=== PATIENT | male | born 1940 | race Caucasian/White ===

== ENCOUNTER 2020-01-17 05:45 | Inpatient (IN) | payer MEDICARE, BC ==
--- NOTE | 2020-01-04 15:31 | NUR ---
PT SEEN FOR SURGICAL PREADMISSION FOR LT TOTAL HIP ON 01/17/20. PATIENT LIVES AT HOME WITH IN A SINGLE STORY HOME, NO SATIRS INSIDE, 1 STEP OUTSIDE W/O RAIL. PATIENT STATES WILL PROVIDE ALL TRANSPORTATION NEEDS AND ASSIST AT HOME AFTER DC. PATIENT REPORTS: -NO FWW, INFORMATION GIVEN FOR [facility] MEDICAL LOAN CLOSET, PT TO F/U. -HAS WALKIN SHOWER WITH INNER AND OUTTER HAND RAIL. -HAS SHOWER CHAIR -HAS HAND-HELD SHOWER HEAD -HAS ADA TOILET WITH RAIL PATIENT SEEN AT [facility] OUTPATIENT P/T TODAY FOR PREOP ASSESSMENT AND ALREADY SCHEDULED FOR POSTOP APPOINTMENT. DENIES NEED FOR HOMEHEALTH. PATIENT INSTRUCTED TO BRING IN FWW AND CPAP ON DAY OF SURGERY, VERBALIZED UNDERSTANIG.
[~2020-01-17] VITALS: Ht 175.3 cm; Wt 103.7 kg
--- OUTSIDE RECORDS SUMMARY | ~2020-01-17 | XMS | Clinical Summary ---
Demographics + + + | Address | [address] | | | [place] [address] | + + + | Home Phone | | + + + | Preferred Language | Unknown | + + + | Marital Status | | + + + | Hoahaoism Affiliation | Unknown | + + + | Race | White | + + + | Ethnic Group | Not or | + + + Author + + + | Author | [facility] | | | and [place] | + + + | Organization | [facility] | | | and [place] | + + + | Address | Unknown | + + + | Phone | Unavailable | + + + Support + + +---------+ + | Name | Relationship | Address | Phone | + + +---------+ + | Amber Philipp | ECON | Unknown | | + + +---------+ + Care Team Providers + +------+ + | Care Residential Care Facility Manager Name | Role | Phone | + +------+ + | Willard Goldberg MD | PCP | | + +------+ + Allergies + + + + + + | Active Allergy | Reactions | Severity | Noted | Comments | | | | | Date | | + + + + + + | Sulfa Antibiotics | Itching | | 12/15/19 | | | | | | 20 | | + + + + + + Medications + + + +---------+------+------+-------+ | Medication | Sig | Dispensed | Refills | Star | End | Statu | | | | | | t | Date | s | | | | | | Date | | | + + + +---------+------+------+-------+ | losartan (COZAAR) | Take 100 mg by mouth | | 0 | | | Activ | | 100 MG tablet | Daily. | | | | | e | + + + +---------+------+------+-------+ | atorvaSTATin | Take 10 mg by mouth | | 0 | | | Activ | | (LIPITOR) 10 mg | nightly. | | | | | e | | tablet | | | | | | | + + + +---------+------+------+-------+ | PHENOBARBITAL PO | Take 180 mg by | | 0 | | | Activ | | | mouth. | | | | | e | + + + +---------+------+------+-------+ | cholecalciferol | Take by mouth Daily. | | 0 | | | Activ | | (THERA-D) 100 mcg | | | | | | e | | (4,000 units) tablet | | | | | | | + + + +---------+------+------+-------+ | Naproxen Sodium | Take by mouth 2 | | 0 | | | Activ | | (ALEVE PO) | times daily. | | | | | e | + + + +---------+------+------+-------+ | acetaminophen | Take 500 mg by mouth | | 0 | | | Activ | | (TYLENOL) 500 mg | every 6 hours as | | | | | e | | tablet | needed for Pain. | | | | | | + + + +---------+------+------+-------+ | doxazosin | Take 8 mg by mouth 2 | | 0 | 03/0 | | Activ | | (CARDURA) 8 MG | times daily. | | | 02/12 | | e | | tablet | | | | 20 | | | + + + +---------+------+------+-------+ Active Problems + + + | Problem | Noted Date | + + + | Preop cardiovascular exam | 12/15/2019 | + + + + + | Last Assessment & Plan: RCRI score = 0 which confers a risk | | of major adverse cardiac events perioperatively of 3.9%. The | | patient has unknown functional capacity due to orthopedic | | limitation. His EKG demonstrates first-degree AV block and | | nonspecific interventricular conduction delay that is unchanged | | compared to prior study done in 2014.The patient is therefore at | | acceptable and nonmodifiable risk to proceed with orthopedic | | surgery. No further cardiac testing or treatment is indicated | | for the purpose of perioperative risk assessment or reduction. | + + + + + | Dilated aortic root | 09/19/2015 | + + + + + | Last Assessment & Plan: 09/2014 Echo report - Dilated | | ascending aorta at 3.8 cm (compared to prior study performed | | 02/2012, ectasia has no significant change from 3.9 cm). 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 | + + + + + | PVC (premature ventricular contraction) | 09/14/2013 | + + + + + | Last Assessment & Plan: Asymptomatic. No treatment indicated | | at this time. | + + + + + | Essential hypertension, benign | 02/17/2012 | + + + + + | Last Assessment & Plan: Controlled on medications. | + + + + + | Hypercholesterolemia | 02/03/2007 | + + + + + | Last Assessment & Plan: Stable on a statin. Dose and | | intensity to be guided by 10-year ASCVD risk. | + + +---------+ + | Obesity | 03/11/2001 | +---------+ + Resolved Problems + + + + | Problem | Noted | Resolved | | | Date | Date | + + + + | Left ventricular hypertrophy | 09/19/19 | | | | 16 | 0 | + + + + Encounters +--------+---------+ + + + | Date | Type | Specialty | Care Team | Description | +--------+---------+ + + + | 12/14/ | Office | Cardiology | Teresa, | Preop cardiovascular | | 2019 | Visit | | MD Toña | exam (Primary Dx); | | | | | | PVC (premature | | | | | | ventricular | | | | | | contraction); | | | | | | Essential | | | | | | hypertension, | | | | | | benign; Dilated | | | | | | aortic root (HCC); | | | | | | Hypercholesterolemia | +--------+---------+ + + + from Last 3 Months Family History + + +------+ + | Medical History | Relation | Name | Comments | + + +------+ + | Heart failure | Father | | | + + +------+ + + +------+ + + | Relation | Name | Status | Comments | + +------+ + + | Father | | | | + +------+ + + Social History + +-------+ +--------+------+ | Tobacco Use | Types | Packs/Day | Years | Date | | | | | Used | | + +-------+ +--------+------+ | Former Smoker | | | | | + +-------+ +--------+------+ + +---+---+---+ | Smokeless Tobacco: | | | | | Never Used | | | | + +---+---+---+ + + +---------+ + | Alcohol Use | Drinks/Week | oz/Week | Comments | + + +---------+ + | Yes | | | | + + +---------+ + + + + | Sex Assigned at | Date Recorded | | | | + + + | Not on file | | + + + Last Filed Vital Signs + + + + + | Vital Sign | Reading | Time Taken | Comments | + + + + + | Blood Pressure | 120/80 | 12/15/2019 2:22 PM | | | | | PDT | | + + + + + | Pulse | 70 | 12/15/2019 2:22 PM | | | | | PDT | | + + + + + | Temperature | 36.8 C (98.3 F) | 12/15/2019 2:22 PM | | | | | PDT | | + + + + + | Respiratory Rate | 18 | 12/15/2019 2:22 PM | | | | | PDT | | + + + + + | Oxygen Saturation | 95% | 12/15/2019 2:22 PM | | | | | PDT | | + + + + + | Inhaled Oxygen | - | - | | | Concentration | | | | + + + + + | Weight | 107.5 kg (237 lb) | 12/15/2019 2:22 PM | | | | | PDT | | + + + + + | Height | - | - | | + + + + + | Body Mass Index | - | - | | + + + + + Plan of Treatment + + + + + | Health Maintenance | Due Date | Last | Comments | | | | Done | | + + + + + | Hepatitis C | | | | | Screening | 2 | | | + + + + + | Med Mgmt: Cr | | | | | | 2 | | | + + + + + | Med Mgmt: K | | | | | | 2 | | | + + + + + | Med Mgmt: Vit D | | | | | | 2 | | | + + + + + | Medication | | | | | Management | 2 | | | + + + + + | Vaccine: | | | | | Pneumococcal 65+ (1 | 7 | | | | of 1 - PPSV23) | | | | + + + + + | Vaccine: Zoster (2 | | 07/09/19 | | | of 3) | 1 | 11 | | + + + + + | Adult Annual | | | | | Wellness Visit | 0 | | | + + + + + | Vaccine: Influenza | | 03/03/20 | | | (#1) | 0 | 18, | | | | | 04/30/20 | | | | | 17, | | | | | 03/21/20 | | | | | 16, | | | | | Addition | | | | | al | | | | | history | | | | | exists | | + + + + + | Vaccine: | | 11/04/19 | | | Dtap/Tdap/Td (2 - | 5 | 15 | | | Td) | | | | + + + + + Procedures + +--------+ + + + | Procedure Name | Priori | Date/Time | Associated Diagnosis | Comments | | | ty | | | | + +--------+ + + + | ECG 12 LEAD | Routin | 12/15/2019 | Preop | Results for this | | | e | 2:27 PM | cardiovascular exam | procedure are in the | | | | PDT | | results section. | + +--------+ + + + | ECHO-EXTERNAL SCAN | | 11/04/2019 | | Results for this | | | | 12:00 AM | | procedure are in the | | | | PDT | | results section. | + +--------+ + + + from Last 3 Months Results ECG 12 lead (12/15/2019 2:27 PM PDT) + + + + + + | Component | Value | Ref Range | Performed | Pathologist | | | | | At | Signature | + + + + + + | VENTRICULAR | 68 | BPM | [facility] | | | RATE EKG | | | | | + + + + + + | ATRIAL RATE | 68 | BPM | [facility] | | + + + + + + | P-R | 248 | ms | [facility] | | | INTERVAL | | | | | + + + + + + | QRS | 142 | ms | [facility] | | | DURATION | | | | | + + + + + + | Q-T | 422 | ms | [facility] | | | INTERVAL | | | | | + + + + + + | Q-T | 448 | ms | [facility] | | | INTERVAL | | | | | | (CORRECTED) | | | | | + + + + + + | P WAVE AXIS | 46 | degrees | [facility] | | + + + + + + | QRS AXIS | -7 | degrees | [facility] | | + + + + + + | T AXIS | 80 | degrees | [facility] | | + + + + + + | INTERPRETAT | Sinus rhythm with 1st | | [facility] | | | ION TEXT | degree A-V block with | | | | | | Premature atrial | | | | | | complexes with Aberrant | | | | | | conductionNon-specific | | | | | | intra-ventricular | | | | | | conduction blockAbnormal | | | | | | ECGNo previous ECGs | | | | | | availableConfirmed by | | | | | | MD TERESA, | | | | | | YAA ([id number]) on | | | | | | 12/20/2019 10:44:22 AM | | | | + + + + + + + + | Specimen | + + | | + + + + + | Narrative | Performed At | + + + | | | + + + + +---------+ + + | Performing | Address | City/State/Zipcode | Phone Number | | Organization | | | | + +---------+ + + | [facility] | | | | + +---------+ + + ECHO-EXTERNAL SCAN (11/04/2019 12:00 AM PDT) + + + | Narrative | Performed At | + + + | Ordered by an | | | unspecified provider. | | + + + from Last 3 Months Insurance + +--------+ +--------+ +---------+--------+ | Payer | Benefi | Subscriber | Effect | Phone | Address | Type | | | t Plan | ID | ferny | | | | | | / | | Dates | | | | | | Group | | | | | | + +--------+ +--------+ +---------+--------+ | MEDICARE | MEDICA | [id number] | 05/26/19 | [phone] | | Medica | | | RE | | 11-Pre | 5 | | re | | | PART A | | sent | | | | | | AND B | | | | | | + +--------+ +--------+ +---------+--------+ | BCBS | BCBS | [id number] | 05/26/19 | | | Indemn | | | OOS | 0 | 19-Pre | | | ity | | | MDCR | | sent | | | | | | SUPPL | | | | | | + +--------+ +--------+ +---------+--------+ + +--------+ +--------+ + + | Guarantor Name | Accoun | Relation to | Date | Phone | Billing Address | | | t Type | Patient | of | | | | | | | | | | + +--------+ +--------+ + + | Marcin Segal | Person | Self [birth year] [address] | | | al/Fam | | 1941 | [phone] | [place] | | | [place] | | | [address] ([place]) | [phone] | + +--------+ +--------+ + + Advance Directives + + + + + | Type | Date Recorded | Patient | Explanation | | | | Stonework Tracer | | + + + + + | Power of | | | | | Carpenters | | | | + + + + + | Advance | | | | | Directive | | | | + + + + +"
--- OUTSIDE RECORDS SUMMARY | ~2020-01-17 | XMS | Encounter Summary ---
Demographics + + + | Address | [address] | | | [place] [address] | + + + | Home Phone | | + + + | Preferred Language | Unknown | + + + | Marital Status | | + + + | Sikh Affiliation | Unknown | + + + | Race | White | + + + | Ethnic Group | Not or | + + + Author + + + | Author | [facility] | | | and [place] | + + + | Organization | [facility] | | | and [place] | + + + | Address | Unknown | + + + | Phone | Unavailable | + + + Support + + +---------+ + | Name | Relationship | Address | Phone | + + +---------+ + | [place] | ECON | Unknown | | + + +---------+ + Care Team Providers + +------+ + | Care Methane Gas Collection System Operator Name | Role | Phone | + +------+ + | Willard Goldberg MD | PCP | | + +------+ + Reason for Visit + + + | Reason | Comments | + + + | Establish Care | | + + + Evaluate & Treat (Urgent) +--------+--------+ + + + + | Status | Reason | Specialty | Diagnoses / | Referred By | Referred To | | | | | Procedures | Contact | Contact | +--------+--------+ + + + + | Closed | | Cardiology | Diagnoses | [place], | Cel[place], | | | | | | Willard Woods, | DO Janie | | | | | Atrioventric | MD [address] | [address] | | | | | genia matos, | [address] | [address] | | | | | first degree | [place], | [place], [place] | | | | | Procedures | [place] [address] | [address] Phone: | | | | | Consult | Phone: | [phone] | | | | | | [phone] | Fax: | | | | | | Fax: | [phone] | | | | | | [phone] | | +--------+--------+ + + + + Encounter Details +--------+---------+ + + + | Date | Type | Department | Care Team | Description | +--------+---------+ + + + | 12/14/ | Office | [facility] | Parvataneni, | Preop cardiovascular | | 2020 | Visit | CARDIOLOGY [place] | MD [address] | exam (Primary Dx); | | | | [address] | [address] | PVC (premature | | | | [place], [place] | [place] [address] | ventricular | | | | [phone] | [phone] | contraction); | | | | [phone] | | Essential | | | | | | hypertension, | | | | | | benign; Dilated | | | | | | aortic root (HCC); | | | | | | Hypercholesterolemia | +--------+---------+ + + + Social History + +-------+ +--------+------+ [...] on file | | + + + documented as of this encounter Last Filed Vital Signs + + + [...] | | + + + + + documented in this encounter Progress Notes Toña Acosta MD - 12/15/2019 2:00 PM PDT Date of visit: 12/20/2019 Primary Care Physician: Willard Goldberg MD CHIEF COMPLAINT: Chief Complaint Patient presents with Establish Care HISTORY OF PRESENT ILLNESS: Marcin Segal is 79 y.o. male with past medical history of aortic ectasia, hypertension, hyperlipidemia who presents to establish cardiac care. He was evaluated by educational psychologist in 2014 for preoperative assessment and has not seen anyone since that time. He had an EKG an d echo performed at that time as well. Patient is asymptomatic however has functional limit ation related to his left hip for which he is planning to have surgery. REVIEW OF SYSTEMS: Review of Systems Constitutional: Negative. Respiratory: Negative for cough, shortness of breath and wheezing. Cardiovascular: Negative for chest pain, palpitations, orthopnea, claudication, leg swellin g and PND. Gastrointestinal: Negative for nausea and vomiting. Neurological: Negative for dizziness and headaches. PHYSICAL EXAM: BP 120/80 | Pulse 70 | Temp 36.8 C (98.3 F) | Resp 18 | Wt 107.5 kg (237 lb) | SpO 2 95% Physical Exam Constitutional: Well-developed. Neck: No JVD present. No thyromegaly present. Cardiovascular: Regular rhythm, S1 normal and S2 normal. No murmur heard. Pulses: Carotid pulses are 2+ on the right side, and 2+ on the left side. Radial pulses are 2+ on the right side, and 2+ on the left side. Pulmonary/Chest: Effort normal and breath sounds normal. No wheezes. No rales. Abdominal: Soft. No tenderness. Musculoskeletal: No edema. DATA: Blood tests: No results found for: WBC, RBC, HGB, HCT, PLT No results found for: NA, K, CL, CO2, ANIONGAP, GLUF, BUN, CREATININE, EGFR No results found for: CHOL, TRIG, LDL, LDL, GLUF No results found for: BNP, TSH, CRP No results found for: TOTEPI EKG (12/15/2019): Performed and reviewed today. Normal sinus rhythm. First-degree AV block . Nonspecific intraventricular conduction delay. Compared to prior ECG performed in 2013 t here is no significant change. Last Echo (09/2014): Per prior Report Dilated ascending aorta at 3.8 cm (compared to prior study performed 02/2012, ectasia has n o significant change from 3.9 cm). Mild associated AI. Last stress test: Last cath: Carotid US: AAA screening: Lower extremity US: OTHERS: Plan ASSESSMENT & PLAN: Marcin Segal is a 79 y.o. male with the following problems and associated assessment an d plan Preop cardiovascular exam RCRI score = 0 which confers a risk of major adverse cardiac events perioperatively of 3.9% . The patient has unknown functional capacity due to orthopedic limitation. His EKG demons trates first-degree AV block and nonspecific interventricular conduction delay that is uncha nged compared to prior study done in 2013. The patient is therefore at acceptable and nonmodifiable risk to proceed with orthopedic easton rgery. No further cardiac testing or treatment is indicated for the purpose of perioperativ e risk assessment or reduction. PVC (premature ventricular contraction) Asymptomatic. No treatment indicated at this time. Essential hypertension, benign Controlled on medications. 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 Mild associated AI. May consider repeat imaging as clinically indicated. Hypercholesterolemia Stable on a statin. Dose and intensity to be guided by 10-year ASCVD risk. Return in about 1 year (around 12/14/2020). The following portions of the patient's history were reviewed and updated as appropriate: Allergies, current medications. Family history, past medical history, past social history, past surgical history. Problem list. Thank you for allowing me to participate in the care of this patient. Please, do not hesitate to contact me for any further questions. Toña Acosta MD 12/20/2019 documented in this encounter Miscellaneous Notes Assessment & Plan Note - Toña Acosta MD - 12/15/2019 2:57 PM PDTAssociated Problem (s): HypercholesterolemiaStable on a statin. Dose and intensity to be guided by 10-year ASC VD risk. ssessment & Plan Note - Toña Acosta MD - 12/15/2019 2:56 PM PDTAssociated Problem(s): Dilated aortic root (HCC)09/2014 Echo report - Dilated ascending aorta at 3.8 cm (compared to prior study performed 02/2012, ectasia has no significant change from 3.9 cm). Mild associated AI . May consider repeat imaging as clinically indicated. ssessment & Plan Note - Toña Acosta MD - 12/15/19 2:56 PM PDTAssociated Problem(s): Essential hypertension, benignControlled on medication s. ssessment & Plan Crystal - Toña Acosta MD - 12/15/2019 2:56 PM PDTAssociated Problem(s): PVC (prematur e ventricular contraction)Asymptomatic. No treatment indicated at this time. ssessment & Plan Crystal - Toña Lraes MD - 12/15/2019 2:55 PM PDTAssociated Problem(s): Preop cardiovascular examRCRI score = 0 which confers a risk of major adverse cardiac events perioperatively of 3.9%. The patient has unknown functional capacity due to orthopedic limitation. His EKG demonstrates first-degree AV block and nonspecific interventricular conduction delay that is unchanged c ompared to prior study done in 2014. The patient is therefore at acceptable and nonmodifiable risk to proceed with orthopedic easton rgery. No further cardiac testing or treatment is indicated for the purpose of perioperativ e risk assessment or reduction. documented in this encounter Plan of Treatment Not on filedocumented as of this encounter Procedures + +--------+ + + + | [...] section. | + +--------+ + + + documented in this encounter Results ECG 12 lead (12/15/2019 2:27 PM [...] | | | + +---------+ + + documented in this encounter Visit Diagnoses + + | Diagnosis | + + | Preop cardiovascular exam - Primary Pre-operative cardiovascular examination | + + | PVC (premature ventricular contraction) Other premature beats | + + | Essential hypertension, benign | + + | Dilated aortic root (HCC) Aortic ectasia, unspecified site | + + | Hypercholesterolemia Pure hypercholesterolemia | + + documented in this encounter"
[~2020-01-17 05:45] MED LIST: ASPIRIN EC81 MG PO; COZAAR100 MG PO; DOXAZOSIN MESYLA8 MG PO; FLOMAX0.4 MG PO; FML5 ML OU; KEFLEX500 MG PO; LIPITOR20 MG PO; LOVASTATIN40 MG PO; PHENOBARBITAL60 MG PO; RESTASIS MULTI5.5 ML OU; TURMERIC 500 M1 EACH PO; TYLENOL EXTRA500 MG PO; VITAMIN D350 MC3 PO
--- NOTE | 2020-01-17 10:40 | NUR ---
PT ARRIVED TO FLOOR VIA STRETCHER. 3 PERSON SLIDE TO HOSPITAL BED. PT DENEIS PAIN. CRYOCUFF, TEDHOSE, FOOT PUMPS IN PLACE. WATER AND CRACKERS PROVIDED. PT W/O NAUSEA/VOMITTING. ASSESSMENT COMPLETED AND VITALS DONE. PT WITH LOW HEART RATE IN 40'S. RECIEVED REPORT FROM AMARILYS ROLAND. IN PACU HR AROUND 60-70. AMARILYS TO CONSULT WITH ANASTESIOLOGIST. DRESSING TO LEFT HIP C/D/I, GREEN LIGHT ON PICCO BLINKING. PT PLACED ON CPOX. 2L NC IN PLACE. SATURATIONS AT 94%. NO ORDERS FOR FLUID. PT SALINE LOCKED. LUNCH ORDERED. ORIENTED TO ROOM AND CALL LIGHT. CALL LIGHT IN REACH. 1100- CALL RECEIVED FROM AMARILYS TO START PT ON TELEMETRY ANDS PLACE HOSPITALISH CONSULT. ORDERS PLACED AND DR GARCIA NOTIFIED.
--- NOTE | 2020-01-17 11:20 | NUR ---
01/17/20 1120 Sheets,Nani 0939 PT ARRIVED TO PACU, VSS. PT REACTIVE AND MILLWORK ESTIMATOR PLACED PT OWN EYE DROPS IN PT EYES. PT DENIES PAIN AND NAUSEA AND IS REORIENTED TO PACU. PT ON 6L VIA MASK. 0945 O2 REMOVED. PT ENCOURAGED TO DEEP BREATHE. 0952 NC PLACED ON PT DUE TO O2 SAT 88%, PT SAT INCREASED TO LOW 90S. 1000 X-RAY AT BEDSIDE. 1010 HOB INCREASED TO PT SIPPING WATER PER REQUEST. 1040 PT READY FOR TRANSFER. PT ARRIVED TO MED-SURG FLOOR AND REPORT TO MED-CLINICAL ACCOUNT LIAISON. PT AT BEDSIDE. DECREASED PULSE NOTED AND THIS RN WILL CONSULT MILLWORK ESTIMATOR. MANUAL PULSE NOTED TO BE IRREGULAR. 1110 MED-CLINICAL ACCOUNT LIAISON CALLED AND ORDER GIVEN FOR THREE LEAD AND HOSPITALIST CONSULT DUE TO IRREGULAR PULSE FROM MILLWORK ESTIMATOR.
--- NOTE | 2020-01-17 11:40 | NUR ---
VITALS TAKEN AND ASSESSMENT COMPLETED. NO DRAINAGE TO LEFT HIP. DRESSING STILL C/D/I. CRYOCUFF, TEDHOSE, FEET PUMPS IN PACE. GREEN LIGHT STILL BLINK. TELE IN PLACE, HR 46. DENEIS PAIN. BILAT LE WITH SOME FEELING ABLE TO WIGGLE TOES SLIGHTLY. CAP REFILL 2.
--- NOTE | 2020-01-17 11:48 | NUR ---
SPOKE WITH DR FRIEDMAN REGARDING PASTE UP ARTIST APPRENTICE ORDERING CONSULT AND TELE. HE STATED FINE.
--- NOTE | 2020-01-17 12:40 | NUR ---
VITALS DONE. PT ASTING AT 97% ON 2 L NC. TITRATED TO ROOM AIR. MAINTAINED SATS AT 97%. PT ABLE TO LIFT RIGHT LEG OFF BED, REPORT SOME PAIN IN LEFT HIP. ABLE TO WIGGLE TOES. CRYODUFF, FEET PUMPS, TEDOHOSE IN PLACE. DRESSING STILL C/D/I. BLINKING GREEN.
--- NOTE | 2020-01-17 13:42 | NUR ---
PATIENT RESTING IN BED. IN ROOM. VITAL SIGNS DONE BY RN. I&O DONE. PATIENT DID NOT VOID DURING THIS PERIOD. RN NOTIFIED. CALL LIGHT WITHIN REACH. NO OTHER NEEDS AT THIS TIME
--- NOTE | 2020-01-17 15:13 | NUR ---
PT UP TO WORK WITH PHYSICAL THERAPY. ABLE TO AMBULATE OUT IN HALLS. HR UP T O120. PT REPORTING SOME DIZZINESS. ASSISTED TO TRY AND VOID. PT UNALBE TO VOID. BACK TO BED. TOOK BLOOD PRESSURE AT 90/55. PT LYED DOWN IN BED. AFTER 5 MINUTES HR RATE WAS DOWN TO 80 AND BLOOD PRESSURE RECHECKED AT 100/40. PT WITHOUT DIZZINESS NOW. PT THINKS IT WAS RELATED TO OXYCODONE TAKEN FOR PAIN.
--- NOTE | 2020-01-17 16:30 | NUR ---
Spoke with Marcin for CM assessment. He remains sleepy and conversation wanders. He has obtained DME needed following his LTH. 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 He has a [employer] cooler place and other DME is at home. FWW is in the car. Pt denies needs to go home, plans on OP therapy at the [facility] on dc. Will follow up with this pt tomorrow.
--- NOTE | 2020-01-17 17:33 | NUR ---
PT DISTENDED AND UNABLE TO VOID. BLADDER SCAN REVIEVED 1500 MLS RETAINED IN BLADDER. 16F TAVAREZ PLACED WITH UROJET. PT TOLERATED WELL.
--- NOTE | 2020-01-17 18:30 | NUR ---
PATIENT IN BED WATCHING TV, RN IN ROOM. CRYO FILLED. CALL LIGHT IN REACH. BELEM FURTHER NEEDS AT THIS TIME
--- NOTE | 2020-01-17 19:33 | NUR ---
PT HAD GOOD DAY. MINIMAL PAIN. WELL CONTROLLED WITH TYLENOL AND TORIDOL. PT RETAINED 1500ML OF URINE SO TAVAREZ PLACED. PICCO WITH SMALL AMOUNT OF SEROSANG DRAINAGE. GREEN LIGHT BLINKING. TEDHOSE, FEET PUMP AND CRYOCUFF IN PLACE. TELE [address] HR FROM 41-120. PT WITH HR AT 120 WITH AMBULATION AND LOW BLOOD PRESSURE. RECOVERED AFTER 5MINUTES IN BED. EATING AND DRINKING WELL.
--- NOTE | 2020-01-17 19:45 | NUR ---
PHONE CALL FROM , NOTIFIED OF STAT LAB ORDERS. LAB CALLED, TO COME TO FLOOR TO DRAW pt LABS.
--- NOTE | 2020-01-17 19:49 | NUR ---
BEDSIDE REPORT RECEIVED FROM LUAN BURGOS. pt RESTING IN BED. JOSHUA WITH SMALL AMT SANGUINOUS DRAINAGE, FLASHING GREEN LIGHT. HR 60 ON TELE 3. CRYO CUFF REFILLED WITH ICE AT THIS TIME AND IN PLACE. TAVAREZ DRAINING YELLOW URINE. CALL LIGHT IN REACH.
--- NOTE | 2020-01-17 22:20 | NUR ---
pt ASSESSMENT COMPLETE. JOSHUA FLASHING GREEN LIGHT, DRAINAGE UNCHANGED ON JOSHUA DRESSING AND FOAM DRESSING. SENSATION INTACT BLE. SOME WEAKNESS LLE. ZAHRAA HOSE, CRYO CUFF, VFPs ON. pt DENIES PAIN, DENIES NAUSEA. SCHEDULED MEDICATIONS ADMINISTERED. IV SL WNL. TAVAREZ EMPTIED. CALL LIGHT IN REACH.
--- NOTE | 2020-01-17 23:05 | NUR ---
IN pt ROOM FOR MEDICATION ADMINISTRATION. RT JANNY PHONED AND IN ROOM TO SET UP pt'S HOME CPAP. ICE WATER PROVIDED. TAVAREZ DRAINING. VFPs ON. pt ASSISTED TO REPOSITION WITH 2PA HIGHER IN BED. CALL LIGHT IN REACH.
--- NOTE | 2020-01-18 00:39 | NUR ---
CHECKED ON pt, RESTING IN BED WITH EYES CLOSED. HOME CPAP ON. SPO2 WNL. LIGHTS OFF IN ROOM.
--- NOTE | 2020-01-18 02:30 | NUR ---
pt SLEEPING, AWAKENS TO VOICE. ASSESSMENT COMPLETE. pt DROWSY, CPAP ON. VSS. TAVAREZ EMPTIED. CRYO CUFF REFILLED WITH ICE. VFPs, ZAHRAA BRAONE, CRYO CUFF IN PLACE. CALL LIGHT IN REACH.
--- NOTE | 2020-01-18 05:45 | NUR ---
pt SLEEPING, AWAKENS TO VOICE. SCHEDULED MEDICATIONS ADMINISTERED. pt DENIES PAIN AT THIS TIME. DROWSY, ORIENTED X 4. VSS. CRYO CUFF REFILLED WITH ICE. ICE WATER PROVIDED. DAYSI D/C'D ORDERED. JOSHUA FLASHING GREEN LIGHT. CALL LIGHT IN REACH.
--- NOTE | 2020-01-18 06:39 | NUR ---
pt RESTED WELL WITH HOME CPAP. DAYSI D/C'D THIS AM. TOLERATING REGULAR DIET, NO NAUSEA. NO REPORTED PAIN, SCHEDULED PAIN MEDICATIONS FOR PAIN CONTROL. DRAINAGE ON JOSHUA DRESSING UNCHANGED FROM START OF SHIFT, SMALL AMT SANGUINOUS DRAINAGE NOTED. JOSHUA FLASHING GREEN LIGHT. FOAM DRESSING IN PLACE. VENOUS FOOT PUMPS, ZAHRAA HOSE, CRYO CUFF WITH ICE IN PLACE. ALERT AND ORIENTED X 4.
--- NOTE | 2020-01-18 06:54 | NUR ---
pt AWAKE, ENCOURAGED pt TO GET UP TO CHAIR. pt REQUESTS TEN MORE MINUTES IN BED, THEN HE WILL GET UP TO CHAIR. VFPs REMOVED REQUESTED FOR pt TO DO PT EXERCISES IN BED. ICE WATER REFILLED. CALL LIGHT IN REACH.
--- NOTE | 2020-01-18 07:37 | OR ---
[facility] [address] [place], [place] [address] Signed DATE OF OPERATION: 01/17/2020 SURGEON: Miesha Whitlock MD PREOPERATIVE DIAGNOSIS: Severe degenerative joint disease, left hip. POSTOPERATIVE DIAGNOSIS: Severe degenerative joint disease, left hip. PROCEDURE PERFORMED: Left total hip arthroplasty with Balwinder. SURGEON: Miesha Whitlock MD ASSISTANTS: 1. Lisa Calderón PA-C. Lisa was present and critical for all portions of the case including positioning, retraction, and wound closure. 2. WILLIAM Ruelas. ANESTHESIA: Spinal. BLOOD LOSS: 250 mL. IMPLANTS: Billingsley Accolade II size 7 stem, high offset with a 56 mm cup, -2.5 head. BRIEF HISTORY: Barney is a 79-year-old gentleman with progressive worsening of his arthritis. He had severe stiffness in the hip and pain that limited his life. Risks and benefits of operative treatment were discussed with him and he elected to proceed. DESCRIPTION OF PROCEDURE: Once consent was obtained, he was taken to the operating room. After adequate anesthesia, he was placed in right lateral decubitus position. Axillary roll was placed and the leg was prepped and draped in the standard sterile fashion. The downside pressure points were well padded. The computer ray was then placed into the anterior Electronically Signed By: MIESHA WHITLOCK MD 01/18/20 0737 PATIENT NAME: BARNEY CÁRDENAS OPERATIVE REPORT DATE OF : 42 REPORT #: [id number] PHYSICIAN: MIESHA WHITLOCK MD PCP: SERGIO MCMAHAN MD REPORT IS CONFIDENTIAL AND NOT TO BE RELEASED WITHOUT AUTHORIZATION [facility] [address] [place], [place] [address] Signed pelvic brim using three stab incisions, three fingerbreadths posterior to the ASIS. The attention was then turned to the actual incision. The anterior lateral approach was taken through skin and subcutaneous tissue. IT band was divided longitudinally. The vastus lateralis was then split along the anterior edge of the hand of the femur and taken distally. This was then taken into the gluteus medius and split directly superiorly. The vastus was then elevated as a subperiosteal sleeve around to the lesser trochanter. The extremely thickened capsule was then elevated off the femoral neck. There was extensive osteophytes and significant stiffness. We attempted to dislocate the hip, however, we were unable to do so. We then made an in situ neck cut and removed the femoral head with some difficulty. Once this was accomplished, we revised the femoral neck cut a little bit more distal. The periacetabular osteophytes removed. Periacetabular soft tissue was removed. Prior to dislocating the hip, we did establish to checkpoint the trochanter and registered the femur with the computer. Going back to the acetabulum once we had the soft tissue cleared off, we brought in the Cask robot and reamed the acetabulum. Initially, our plan was 40 of abduction and 20 of anteversion. However, I did not like that position. We changed that to 40 and 15 on examining the hip. The acetabulum was then reamed up to a 56 and impacted with a 56 was extremely good fit. The acetabular liner was then impacted until it was locked. Attention was then turned to the proximal femur, which was cleared of soft tissue into the trochanter. The femur was opened using the jacobie cutter followed by the Gianni awl. We then curetted laterally and began broaching. We broached up to a 7 of our preop templating showed an 8, 7 was quite well fitting, I did not feel like we can get an 8 in. We then left the 7 with a high offset neck and a 0 head and reduced the hip. It was a little bit long with a little bit high offset. We then dislocated the hip and took the trial components off and re-broached back up to a 7 and a -2.5 head. That showed good leg length and offset. The trials were then removed. The final stem was then impacted until it was well seated. The -2.5 head was placed. He had no Shuck and the stability was good. The hip was taken through range of motion of 100 degrees of flexion. He still had some tightness in abduction, some medial capsulotomy was performed. The flexion and extension were good. The wound was then copiously irrigated with antibiotic solution. The capsule was then closed using #1 Ethibond. The IT band was closed using #1 Stratafix, subcutaneous tissue with #0 Stratafix, and skin with ZipLine. The pelvic ray was removed and those wounds were Steri-Stripped. The wound was dressed with a JOSHUA wound VAC dressing. He was awakened and taken to the recovery room in satisfactory condition. All sponge, needle, and instrument counts were correct. Miesha Whitlock MD Electronically Signed By: MIESHA WHITLOCK MD 01/18/20 0737 PATIENT NAME: BARNEY CÁRDENAS OPERATIVE REPORT DATE OF : 42 REPORT #: [id number] PHYSICIAN: MIESHA WHITLOCK MD PCP: SERGIO MCMAHAN MD REPORT IS CONFIDENTIAL AND NOT TO BE RELEASED WITHOUT AUTHORIZATION [facility] [address] [place] [address] Signed BA/MODL /[id number] Copies: ~ Electronically Signed By: MIESHA WHITLOCK MD 01/18/20 0737 PATIENT NAME: BARNEY CÁRDENAS OPERATIVE REPORT DATE OF : 42 REPORT #: [id number] PHYSICIAN: MIESHA WHITLOCK MD PCP: SERGIO MCMAHAN MD REPORT IS CONFIDENTIAL AND NOT TO BE RELEASED WITHOUT AUTHORIZATION
--- NOTE | 2020-01-18 08:00 | NUR ---
PATIENT SITTING UP IN CHAIR. WHITE BOARD UPDATED. PATIENT'S BREAKFAST ORDERED. CALL LIGHT WITHIN REACH. NO OTHER NEEDS AT THIS TIME
--- NOTE | 2020-01-18 08:06 | NUR ---
REPORT RECEIVED. PT ASSISTED TO CHAIR STAND PA WITH FWW. GEO PAIN. DR FRIEDMAN IN TO ROUND ON PT. POC DISCUSSED. SCOPE PATCH PEREZ TAVAREZ REMOVED AT 0600. PT STILL DTV. CALL LIGHT IN REACH. GEO NEEDS.
--- NOTE | 2020-01-18 10:28 | NUR ---
PATIENT SITTING UP IN CHAIR. IN ROOM. VITAL SIGNS AND I&O DONE. LOW DYASTOLIC BLOOD PRESSURE. PATIENT DID NOT VOID DURING THIS PERIOD. PATIENT COMPLAINS ABOUT DIZZINESS. RN NOTIFIED. CALL LIGHT WITHIN REACH. NO OTHER NEEDS AT THIS TIME
[2020-01-18] MEDS ORDERED: THERA TEARS15 ML OU (11:25)
[2020-01-18] MEDS ORDERED: ALEVE220 MG PO (11:27)
--- NOTE | 2020-01-18 11:28 | NUR ---
MED REC COMPLETE
--- NOTE | 2020-01-18 11:29 | NUR ---
PT JUST FINISHED WITH THERAPY. PT STILL WITH NO VOID SINCE TAVAREZ REMOVAL. DR FRIEDMAN UPDATE. PHYSICAL THERPY WOULD LIKE TO WORK MORE WITH PT ON STABILITY AND SAFETY. ORDERS TO REPLACE TAVAREZ IF BLADDER SCAN IS OVER 500ML. CURRENT SCAN REVIELS 240ML IN BLADDER.
--- NOTE | 2020-01-18 12:26 | NUR ---
STEVE WATSON. PT UP IN CHAIR EATING LUNCH. GEO NAIK.
--- NOTE | 2020-01-18 14:16 | NUR ---
PATIENT SITTING UP IN CHAIR. PATIENT GOES TO USE THE BATHROOM. PATIENT BACKS TO CHAIR. VITAL SIGNS AND I&O DONE. PATIENT DID NOT VOID DURING THIS PERIOD. RN NOTIFIED. CALL LIGHT WITHIN REACH. NO OTHER NEEDS AT THIS TIME
--- NOTE | 2020-01-18 14:34 | NUR ---
PT ALERT, ORIENTED AND SITTING IN CHAIR DOING LEG EXERCISES. PT MENTIONED THAT HE NEEDS TO URINATE BEFORE DC. POINT OF CONCERN FOR PT HAD GOOD VISIT, PT IS A PERSON OF STRONG SABIANIST BELIEFS. KNOWS GOD WILL CARE FOR HIM. PT REQUESTED PRAYER. WILL FOLLOW NEEDED
--- NOTE | 2020-01-18 14:42 | NUR ---
PT WORKING WITH PHYSICAL THERAPY.
--- NOTE | 2020-01-18 16:00 | NUR ---
Pt walking in the [place] with PT. He is staying another night as PT did not feel he is ready to dc.
--- NOTE | 2020-01-18 16:28 | NUR ---
TO PATIENT ROOM TO PLACE TAVAREZ. BLADDERSCAN SHOWED A READING OF 480ML. TAVAREZ PLACED FOLLOWING STERILE PROCEDURE. UROJET WITH LIDOCAINE WAS USED. COUDE TAVAREZ WAS USED. PATIENT TOLERATED WELL. PATIENT PERICARE DONE POST TAVAREZ. PATIENT DEINES ANY FURTHER NEEDS AT THIS TIME. PATIENT LYING SEMI-FOWLERS WITH CRYO ON HIP WITH PILLOW CASE BARRIER BETWEEN CRYO AND SKIN. HIP SURGICAL SITE DRESSING IN TACT WITH MINIMAL SEROUS DRAINAGE OBSERVED ON BANDAGE. PATIENT DENIES ANY FURTHER NEEDS AT THIS TIME.
--- NOTE | 2020-01-18 18:47 | NUR ---
DIRECTOR WOMEN REPORTED PATIENT "FEELING FUNNY." ASSESSED PATIENT, PATIENT STATES, "I FEEL KIND OF DIZZY FROM TIME TO TIME." PATIENTS VITALS CHECKED. O2 SAT 97% BUT PULSE FLUCTUATED FROM MID 40'S TO MID 50'S. APICAL PULSE OF 46. PATIENT EDUCATED ON SIGNS OF POOR PERFUSION AND VERBALIZES UNDERSTANDING AND NEED TO USE CALL LIGHT IF HE EXPERIENCES AND SYMPTOMS. PATIENT DENIES ANY FURTHER NEEDS AT THIS TIME. PATIENT LYING SEMI-FOWLERS WITH THREE RAILS UP, BEDSIDE TABLE AND CALL LIGHT WITHIN REACH.
--- NOTE | 2020-01-18 19:43 | NUR ---
REPORT RECEIVED FROM DAY SHIFT RN. PT LYING IN BED, ALERT AND ORIENTED. DENIES PAIN OR NAUSEA. DISCUSSED MEDICATIONS WITH PT HE EXPRESSED CONCERN OVER POST OP HEART RATE. PT DENIES NEEDS FURTHER NEEDS AT THIS TIME. WHITE BOARD UPDATED. CALL LIGHT IN REACH.
--- NOTE | 2020-01-18 20:45 | NUR ---
TELEPHARMACY CALLED TO VERIFY ORDERS FOR SCHEDULED MEDS. PHARMACIST WOULD NOT RECOMMEND GIVING DICLOFENAC AND KETORALAC TOGETHER. DR. FRIEDMAN CALLED TO VERIFY ORDERS HE STATES "THAT'S WHAT I ALWAYS DO, THE PT IS ALLERGIC TO SULFA SO I COULD NOT ORDER CELEBREX".
--- NOTE | 2020-01-18 22:30 | NUR ---
EVENING ASSESSMENT COMPLETE. SCHEDULED MEDS ADMINISTERED PER EMAR. PT DENIES PAIN OR NAUSEA. LEFT HIP DRESSING WITH SMALL AMOUNT OF SEROSANG DRAINAGE. JOSHUA FLASHING GREEN. CMS INTACT. FRESH ICE TO CRYO. SCD'S/TEDS/HP IN PLACE. TAVAREZ PATENT DRAINING CLEAR YELLOW URINE. FRESH ICE WATER PROVIDED. PT DENIES DIZZINESS. NO FURTHER NEEDS. CALL LIGHT IN REACH.
--- NOTE | 2020-01-19 01:02 | NUR ---
PT RESTING IN BED WITH HOME CPAP, NAD.
--- NOTE | 2020-01-19 02:56 | NUR ---
PT RESTING IN BED WITH EYES CLOSED. RR EVEN AND UNLABORED. CPAP IN PLACE. TAVAREZ PATENT DRAINING CLEAR YELLOW URINE.
--- NOTE | 2020-01-19 06:01 | NUR ---
PT ALERT AND ORIENTED. SLEPT WELL WITH HOME CPAP. VERÓNICA REG DIET. NO NAUSEA. PAIN WELL CONTROLLED WITH SCHEDULED MEDS. LEFT HIP DRESSING WITH OLD SEROSANG DRAINAGE. JOSHUA LIGHT FLASHING GREEN. SCD'S/TEDS/HP/CRYO. PT WITH URINARY RETENTION AND HAD TAVAREZ PLACED 01/17. DC'D WNL 01/18 0600. URINE OUTPUT QS. PT DENIES DIZZINESS WITH AMB THIS SHIFT. REPORTS HE'S FEELING "MORE CLEAR" THIS AM. 1PA WITH FWW.
--- NOTE | 2020-01-19 07:30 | NUR ---
REPORT RECEIVED FROM LUAN OSEGUERA. PT RESTING IN BED. DENIES PAIN AND NAUSEA. DRESSING SHOWS NO NEW DRAINAGE, SMALL AMOUNT OF OLD SHADOWING. GREEN LIGHT FLASHING ON JOSHUA CANISTER. CRYO CUFF AND ZAHRAA HOSE IN PLACE. PT ANTICIPATING BREAKFAST. NO ADDITIONAL REQUESTS OR COMPLAINTS. CALL LIGHT WITHIN REACH.
--- NOTE | 2020-01-19 08:01 | NUR ---
MORNING ASSESSMENT AND MEDICATION DUE. PT RESTING IN BED. PT DENIES PAIN AND NAUSEA. PT REPORTS TOP OF THIGH IS "STILL NUMB." 1 PERSON ASSIST, FWW UP TO CHAIR. PT REPORTS "A LITTLE ACHEY AND STIFF" WITH MOVEMENT BUT STATES DISCOMFORT GOES RIGHT BACK TO 0/10 WITH REST. ASSESSMENT DONE. CMS INTACT. DRESSING SHOWS SMALL AMOUNT OF OLD SHADOWING. GREN LIGHT FLASHING ON JOSHUA CANISTER. CRYO CUFF AND ZAHRAA HOSE IN PLACE. LUNG SOUNDS CLEAR. HERAT RATE CONTINUES TO BE IRREGULAR. MEDICATION GIVEN. PT EATING BREAKFAST. NO ADDITIONAL REQUESTS OR COMPLAINTS AT THIS TIME. CALL LIGHT BRYANNA MARVIN.
--- NOTE | 2020-01-19 10:15 | NUR ---
THIS RN TO ROOM TO CHECK ON PT. PT BACK FROM WORKING WITH PHYSICAL THERAPY. PT REPORTS / PAIN. SCHEDULED MEDICATION GIVEN. PT UP TO CHAIR. CRYO CUFF IN PLACE. NO ADDITIONAL REQEUSTS OR COMPLAINTS. PT HAS YET TO VOID. MOLDING SANDER TO BEDSIDE TO ASSIST PT WITH ATTEMPT TO URINATE.
--- NOTE | 2020-01-19 10:53 | NUR ---
Pt. was up sitting in chair. vitals and I&O's taken and charted. Pt. was able to walk to the bathroom and voided 200ml was charted. Chrio cuff was refilled linens were changed.
--- NOTE | 2020-01-19 11:05 | NUR ---
THIS RN TO ROOM TO CHECK ON PTS VOIDING STATUS. 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 PT DENIES PAIN AND NAUSEA AT THIS TIME. PT UPDATED ON PLAN OF CARE. NO ADDITIONAL REQUESTS OR COMPLAINTS. CALL LIGHT BRYANNA MARVIN. AT BEDSIDE.
--- NOTE | 2020-01-19 11:50 | NUR ---
Dr. Whitlock in pt's room. Plans for pt to stay one more night. Pt did not meet PT criteria for dc and has not been able to void. Pt's questions answered by Dr. Whitlock. 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 States pt was unable to void following back surgery also. Will fu with pt tomorrow for possible dc.
--- NOTE | 2020-01-19 12:02 | NUR ---
NOON ASSESSMENT DUE. PT UP TO CHAIR EATING LUNCH. PT REPORTS 0/10 PAIN WHILE RESTING AND 4/10 WHEN DOING PHYSICAL THERAPY. PT REQUESTS PAIN MEDICATION. SEE MAR FOR MEDICATION GIVEN. ASSESSMENT DONE. CMS INTACT. DRESSING SHOWS NOW NEW DRAINAGE. GREEN LIGHT FLASHING ON JOSHUA CANISTER. PT UP TO RESTROOM, VOIDS 375ML. PT UNSTEADY ON FEET AND HESITANT TO AMBULATE. PT BACK TO CHAIR. CRYO CUFF AND ZAHRAA HOSE IN PLACE. PT ANTICIPATING PHYSICAL THERAPY THIS AFTERNOON. NO ADDITIONAL REQUESTS OR COMPLAINTS. CALL JANN MARVIN.
--- NOTE | 2020-01-19 13:12 | NUR ---
PT ALERT, ORIENTED AND SITTING IN CHAIR, LEGS UP. PT STILL HAVING DIFFICULTY URINATING. PT STARTING TO BE ALITTLE STRESSED. GAVE ENCOURAGEMENT, HOPES TO DC LATER TODAY
--- NOTE | 2020-01-19 13:55 | NUR ---
THIS RN TO ROOM TO CHECK ON PT. 1 PERSON ASSIST, FWW UP TO RESTROOM. PT VOIDS 350ML WITHOUT ISSUE. PT RETURNED TO CHAIR. PT REPORTS 3/10 PAIN AND DENIES NEED FOR ADDITIONAL MEDICAITON. SCHEDULED MEDICATION GIVE. NO ADDITIONAL REQUESTS OR COMPLAINTS. CRYO CUFF IN PLACE. GREEN LIGHT FLASHING ON JOSHUA CANISTER. CALL LIGHT WITHIN REACH.
--- NOTE | 2020-01-19 14:16 | NUR ---
pt vitals taken and charted and I&O's charted. pt. up sitting comfortably in his chair.
--- NOTE | 2020-01-19 15:06 | NUR ---
Pt. went in to the bathroom and attempted to void. Nothing. Said he will try again in an hour
--- NOTE | 2020-01-19 15:45 | NUR ---
PT POST OP DAY 2 FOR LEFT TOTAL HIP REPLACEMENT. PT UP WITH 1 PERSON ASSIST IN ROOM, TO CHAIR AND WITH PHYSICAL THERAPY X2 THIS SHIFT. PT REPORTS 0-4/10 PAIN THIS SHIFT, SCHEDULED AND PRN PAIN MEDICATIONS GIVEN. DRESSING SHOWS MINIMAL NEW DRAINAGE AND IS OTHERWISE INTACT. GREEN LIGHT FLASHING ON JOSHUA CANISTER THROUGHOUT SHIFT. CRYO CUFF, ZAHRAA HOSE AND FOOT PUMPS USED. PT TOLERATING PO INTAKE WITH GOOD APPITITE. CMS INTACT. TAVAREZ CATHETER DC'D THIS MORNING BY CONTAINERS SALES REPRESENTATIVE. PT VOIDING QUANTITY SUFFICIENT. PT USES CALL LIGHT APPROPRIATLY.
--- NOTE | 2020-01-19 15:55 | NUR ---
AFTERNOON ASSESSMENT DUE. PT FINISHING UP WITH PHYSICAL THERAPY. PT BACK TO ROOM AND UP TO CHAIR. PT REPORTS 3/10 PAIN WHEN WALKING WITH PHYSICAL THERAPY AND 0/10 PAIN ONCE BACK TO CHAIR. SCHEDULED MEDICATIONS GIVEN. ASSESSMENT DONE. CMS INTACT. JOSHUA DRESSING SHOWS SCANT AMOUNT OF NEW DRAINAGE, DRESSING NOW ~25% COVERED. FOAM DRESSING SHOWS SMALL PINPOINT SHADOWING. GREEN LIGHT FLASHING ON JOSHUA CANISTER. CRYO CUFF IN PLACE. LUNG SOUNDS CLEAR. HEART RATE REGULAR AT THIS TIME, OCCATIONAL PVC'S WHICH PT STATES ARE HIS BASELINE. PT REMAINS UP TO CHAIR. CAREGIVER TRAY ORDERED FOR PTS . NO ADDITIONAL REQUESTS OR COMPLAINTS. CALL LIGHT WITHIN REACH.
--- NOTE | 2020-01-19 16:58 | NUR ---
THIS RN TO ROOM TO CHECK ON PT. PT DENIES PAIN AND NAUSEA. PT UP TO CHAIR. EATING DINNER. NO REQUESTS OR COMPLAINTS. CALL LIGHT WITHIN REACH. CRYO CUFF IN PLACE.
--- NOTE | 2020-01-19 18:03 | NUR ---
PATIENT UP IN CHAIR, FINISHED WITH DINNER. PATIENT HAS HAD GOOD URINE OUTPUT TODAY, BUT NOTHING FOR THE LAST FEW HOURS, DOESN'T FEEL THE URGE RIGHT NOW, WILL CHECK BACK IN 1/2 HOUR. CRYO REFILLED,CALL LIGHT IN REACH
--- NOTE | 2020-01-19 18:35 | NUR ---
THIS RN TO ROOM TO CHECK ON PT. PT DENIES PAIN AND NAUSEA. 1 PERSON ASSIST, FWW UP TO RESTROOM. PT VOIDS IN URINAL. PT CONTINUES TO BE UNSTEADY ON FEET. AND HAS DIFFICULTY RISING FROM CHAIR. 1 PERSON ASSIST TO BED FOR THE NIGHT. CRYO CUFF, HEEL PROTECTORS, ZAHARA HOSE, AND FOOT PUMPS IN PLACE. PTS BELONGINGS WITHIN REACH. NO ADDITIONAL REQUESTS OR COMPLAINTS. CALL LIGHT WITHIN REACH.
--- NOTE | 2020-01-19 19:20 | NUR ---
SHIFT REPORT RECEIVED FROM ANABELLA ROLAND. PT REATING IN BED, WATCHING TV. JOSHUA BLINKING SATHISH. ZAHRAA BARONE, SCDs, HEEL PROTECTORS AND CRYO CUFF ON. PT DENIES PAIN. NO NEEDS AT THIS TIME. CALL LIGHT IN REACH.
--- NOTE | 2020-01-19 20:45 | NUR ---
HELPED PT TO THE BATHROOM AND BACK TO BED WITH HIS FWW. FRESH WATER GIVEN. VITALS AND I&OS DONE AND CHARTED. BEDSIDE TABLE AND CALL LIGHT IN REACH.
--- NOTE | 2020-01-19 21:48 | NUR ---
ASSESSMENT COMPLETED. JOSHUA BLINKING GREEN, DRIED BLOOD TO UPPER DRESSING. SCHEDULED MEDS PROVIDED. PT DENIES PAIN. CMS INTACT X 4 EXTREMITIES. NO SWELLING NOTED. LUNGS CLEAR. BOWEL TONES ACTIVE, ABD SOFT AND NONTENDER. IV WNL, CDI, FLUSHED WELL. SCDs, ZAHRAA HOSE, HEEL PROTECTORS AND CRYO CUFF ON. WATER PROVIDED. NO OTHER NEEDS AT THIS TIME. CALL LIGHT IN REACH.
--- NOTE | 2020-01-19 23:11 | NUR ---
ASSESSMENT COMPLETED. RLE REDNESS, SCABS AND 3+ EDEMA. LLE 2+ EDEMA, REDNESS. NUMBNESS AND TINGLING IN BOTH LOWER EXTREMITIES. LUNGS CLEAR. BOWEL TONES ACTIVE, ABD SOFT AND NONTENDER. GCS 15, A&O X4. CMS INTACT IN BOTH HANDS. PULSES INTACT IN BOTH FEET, MIDDLE DIGIT AMPUTATED ON BOTH FEET. FEET ELEVATED. SCHEDULED MEDS PROVIDED. CBG 109, NO INSULIN COVERAGE REQUIRED. PT ATE 100% OF SANDWICH BOX. NO OTHER NEEDS AT THIS TIME. CALL LIGHT IN REACH.
--- NOTE | 2020-01-20 00:03 | NUR ---
PT RESTING IN BED, EYES CLOSED. RR EVEN, UNLABORED. CALL LIGHT IN REACH.
--- NOTE | 2020-01-20 02:15 | NUR ---
PT RESTING IN BED, EYES CLOSED. RR EVEN, UNLABORED. JOSHUA BLINKING GREEN, CRYO CUFF, HEELS, ZAHRAA HOSE AND SCDs ON. CALL LIGHT IN REACH.
--- NOTE | 2020-01-20 04:16 | NUR ---
PT RESTING IN BED, EYES CLOSED. SCHEDULED IV MED PROVIDED. RR EVEN, UNLABORED. CALL LIGHT IN REACH.
--- NOTE | 2020-01-20 05:45 | NUR ---
ASST I&Os, EMPTIED URINAL, REPLACE CRYO ICE, RN IN FOR ASSESMENT,
--- NOTE | 2020-01-20 06:25 | NUR ---
ASSESSMENT COMPLETED. JOSHUA BLINKING GREEN, CRYO CUFF, ZAHRAA HOSE, HEEL PROTECTORS AND SCDs ON. IV WNL. NO CHANGES TO BANDAGES. CMS INTACT X4 EXTREMITIES. ABD SOFT, NONTENDER, BOWEL TONES ACTIVE. GCS 15, A&O X4. NO OTHER NEEDS AT THIS TIME. CALL LIGHT IN REACH.
--- NOTE | 2020-01-20 07:57 | NUR ---
PT RESTING IN HIS CHAIR WITH HIS LEGS ELEVATED. ZAHRAA HOSE ON, JOSHUA FLASHING GREEN, CRYO CUFF ON AND RUNNING. DRESSING NOTED TO HAVE SOME OLD DRY DRAINAGE AND DRESSING INTACT AND NO NOTED S/S OF INFECTION. PT DENIES ANY PAIN AT THIS TIME. DR FRIEDMAN TO THE ROOM VISITING WITH THE PT. GOOD CIRCULATION NOTED.
[2020-01-20] MEDS ORDERED: ASPIRIN EC325 MG PO (07:59)
[2020-01-20] MEDS ORDERED: TAMSULOSIN HCL0.4 MG PO (07:59)
[2020-01-20] MEDS ORDERED: DICLOFENAC SODI75 MG PO (07:59)
[2020-01-20] MEDS ORDERED: SENNA LAX8.6 MG PO (08:00)
[2020-01-20] MEDS ORDERED: OXYCODONE HCL5 MG PO (08:00)
[2020-01-20] MEDS ORDERED: GABAPENTIN300 MG PO (08:00)
--- NOTE | 2020-01-20 09:03 | NUR ---
pt. was up sitting in his chair. Breakfast tray was removed. Room was picked up and Bed linens were changed. Pt. used a wash cloth to wash his face and hands.
--- NOTE | 2020-01-20 09:38 | NUR ---
Pt working with physical therapy at this time.
--- NOTE | 2020-01-20 10:10 | NUR ---
Pt resting in his chair following having just finished working with physical therapy. He states he continues to be comfortable at this time.
--- NOTE | 2020-01-20 10:26 | NUR ---
Per Feli the physical therapist the pt as been cleared for discharge. I called Dr Whitlock office and left a message for him to notify him of Feli clearing the pt.
--- NOTE | 2020-01-20 11:54 | NUR ---
Pt sitting up in his chair visiting with his spouse and is getting ready for dc.
--- NOTE | 2020-01-20 12:39 | NUR ---
DISCHARGE INSTRUCTIONS GIVEN, QUESTIONS ANSWERED, SALINE LOCK REMOVED INTACT. VITALS ARE STABLE. PATIENT GIVEN WHEELCHAIR RIDE TO FRONT DOOR.
--- NOTE | 2020-01-20 13:42 | NUR ---
PT SITTING DRESSED IN CHAIR WITH CHARLEEN AT , WAITING FOR DC. PT THANKED ME FOR VISITING, GAVE BLESSING. WILL FOLLOW NEEDED
--- NOTE | 2020-01-21 08:39 | DS ---
[facility] [address], [place] [address] Signed ADMISSION DATE: 01/19/2020 DISCHARGE DATE: 01/20/2020 ADMISSION DIAGNOSIS: Degenerative joint disease, left hip. DISCHARGE DIAGNOSIS: Degenerative joint disease, left hip. PROCEDURE PERFORMED DURING THIS HOSPITALIZATION: Left total hip arthroplasty. BRIEF HISTORY: Barney is a 79-year-old gentleman, who was admitted for total hip. He underwent the above-named procedure and tolerated it well. He was initially kept overnight secondary to a history of urinary retention. He did develop urinary retention requiring a catheter. The initial catheter was removed and continued to be unable to void. He was on Flomax from the time of admission. The catheter was replaced overnight again and removed and after that he was able to void copious amounts urine. He was seen by Physical Therapy and was a little bit slow initially to get his balance and gait pattern. By the day of discharge, however, he was able to go up and down the stairs, up and down the hallway with a good safety profile. We did have to discontinue the scopolamine patch secondary to dizziness. His pain medication was quite adequate to control the pain throughout his hospitalization. He will be discharged to home on oxycodone, Flomax, gabapentin, and diclofenac. He will follow up with me in 7 to 10 days. Miesha Whitlock MD BA/NIDIA /[id number] Copies: Electronically Signed By: MIESHA WHITLOCK MD 01/21/20 0839 PATIENT NAME: BARNEY CÁRDENAS DISCHARGE SUMMARY DATE OF : 42 REPORT #: [id number] PHYSICIAN: MIESHA WHITLOCK MD PCP: SERGIO MCMAHAN MD REPORT IS CONFIDENTIAL AND NOT TO BE RELEASED WITHOUT AUTHORIZATION [address] [address] Signed ~ Electronically Signed By: MIESHA WHITLOCK MD 01/21/20 0839 PATIENT NAME: BARNEY CÁRDENAS DISCHARGE SUMMARY DATE OF : 42 REPORT #: [id number] PHYSICIAN: MIESHA WHITLOCK MD PCP: SERGIO MCMAHAN MD REPORT IS CONFIDENTIAL AND NOT TO BE RELEASED WITHOUT AUTHORIZATION
== END 2020-01-20 12:30 | disposition home or self-care (01) | DRG 726 ==
LOC: MS 05:45 → DS 05:45 → MS 10:25 → DS 01-19 10:31 → MS 01-19 10:32
PROVIDERS: ADMIT Specialist
DX: N40.1 Benign prostatic hyperplasia with lower urinary tract symptoms (principal); R33.8 Other retention of urine; I10 Essential (primary) hypertension; G40.909 Epilepsy, unspecified, not intractable, without status epilepticus; E78.5 Hyperlipidemia, unspecified; K59.00 Constipation, unspecified; I49.1 Atrial premature depolarization; Z79.899 Other long term (current) drug therapy; Z88.2 Allergy status to sulfonamides; Z88.8 Allergy status to other drugs, medicaments and biological substances; Z96.642 Presence of left artificial hip joint
CPT/HCPCS: 01214; 36415; 64447; 64450; 72170; 76942; 80048; 83735; 94760; 94762; 97110; 97116; 97161; 97165; 97530; 97535; C1776; J0171; J0690; J1100; J1885; J2001; J2250; J2405; J2704; J2795; J7121

== ENCOUNTER 2020-11-24 06:20 | Day surgery (SDC) | payer MEDICARE, BC ==
[~2020-11-24] VITALS: Ht 175.3 cm; Wt 108.4 kg
[~2020-11-24 06:20] MED LIST changes: +ALEVE220 MG PO; +ASPIRIN EC325 MG PO; +DICLOFENAC SODI75 MG PO; +DOXAZOSIN MESYLA4 MG PO; +DOXYCYCLINE HY100 MG PO; +GABAPENTIN300 MG PO; +JANTOVEN5 MG; +JANTOVEN6 MG PO; +LOSARTAN-HCTZ1 EAC2 PO; +OXYCODONE HCL5 MG PO; +SENNA LAX8.6 MG PO; +TAMSULOSIN HCL0.4 MG PO; +THERA TEARS15 ML OU
--- NOTE | 2020-11-24 08:14 | NUR ---
11/24/20 0814 Yessenia Cantu 0805: PT ARRIVES TO PACU FOR RECOVERY VIA STRETCHER. NON AROUSAL TO VERBAL OR TACTILE STIMULI AT THIS TIME. VSS, RESP EVEN AND UNLABORED ON 10L VIA NON REBREATHER. OPA IN PLACE. O2 SAT >98% 0812: VS REMAINS STABLE. MOVES EXTREMITIES AND GROANS TO TACTILE STIMULI BUT REMAINS UNABLE TO FOLLOW COMMANDS. OPA REMAINS IN PLACE. CONTD 10L VIA NON REABREATHER. O2 SATS MAINTAINED >99%
--- NOTE | 2020-11-30 08:11 | OR ---
[facility] [address] [place], [place] [address] Signed DATE OF OPERATION: 11/24/2020 SURGEON: Suraj Redmond MD PREOPERATIVE DIAGNOSES: 1. Personal history of colonic polyps, age 71 (2012). 2. Diverticulosis. 3. Mom with colon cancer versus pancreatic cancer under the age of 60. 4. Unremarkable colonoscopy in 2016. 5. Anemia with hemoglobin 11.3 and a mean cell volume 69. POSTOPERATIVE DIAGNOSES: 1. Minimal sigmoid diverticulosis. 2. Moderate internal hemorrhoids. 3. Long redundant colon. PROCEDURE: Colonoscopy without biopsy to the distal right colon or proximal transverse colon. ESTIMATED BLOOD LOSS: None. INDICATIONS: Barney is a 80-year-old gentleman with significant past medical history. He was asked to see me for a followup colonoscopy. He had a serrated adenomatous polyp removed in 2012. He is known to have diverticulosis. He thought his mother might have colon cancer, but then he thinks it could be pancreatic cancer. He had a negative colonoscopy in 2016. He has no lower GI complaints. He currently has no lower GI complaints. I gave him a pamphlet in the office on colonoscopy. We discussed the nature of the test. He understands there is risk including, but not limited to gas bloating, crampy abdominal pain, bleeding, perforation requiring surgery, and missed diagnosis. Also because of his significant medical history, he requires monitored anesthesia care with infusion of propofol. He had expressed understanding and wished to proceed. PROCEDURE NOTE: Barney was taken into our endoscopy suite and placed in the left lateral decubitus position. He was given monitored anesthesia care with propofol per our nurse sap treasury consultant. He was given preoperative antibiotics along with subcutaneous heparin. A digital rectal exam was performed and this was unremarkable. He does have mild induration and swelling to the prostate gland. No dominant nodules. The adult Electronically Signed By: SURAJ REDMOND MD 11/30/20 0811 PATIENT NAME: BARNEY CÁRDENAS OPERATIVE REPORT DATE OF : 42 REPORT #: [id number] PHYSICIAN: SURAJ REDMOND MD PCP: WILLARD GOLDBERG MD REPORT IS CONFIDENTIAL AND NOT TO BE RELEASED WITHOUT AUTHORIZATION [facility] [address] [place], [place] [address] Signed colonoscope was introduced and advanced quite easily right up to the handle. He has a large protuberant abdomen. We used abdominal compression and we rotated into the supine position and back in the left lateral decubitus position. Even then, the scope would not advance any further. His prep had been quite excellent. We were probably looking down into the mid right colon. We may have been in the very proximal transverse colon. The scope was then slowly withdrawn. Again, he has a very long redundant colon. He does have some diverticula in the sigmoid colon. They were [id number] in size, a few in number, and scattered about. The rectum was unremarkable. No polyps were visualized. Upon retroflexion of scope, we can see his moderate-sized internal hemorrhoids. After this, the gas was suctioned out and colonoscope removed. Barney tolerated procedure quite well. RECOMMENDATIONS: I will see Barney back in my office in the next few weeks to review the results. He will need a barium enema to evaluate the proximal portion of his colon. Suraj Redmond MD ALB/MODL /[id number] cc: Suraj Redmond MD Chart Filed Incomplete Willard Goldberg MD Copies: SURAJ REDMOND MD CHART FILED INCOMPLETE WILLARD GOLDBERG MD ~ Electronically Signed By: SURAJ REDMOND MD 11/30/20810 PATIENT NAME: MELIABARNEY KIKO OPERATIVE REPORT DATE OF : 42 REPORT #: [id number] PHYSICIAN: SURAJ REDMOND MD PCP: WILLARD GOLDBERG MD REPORT IS CONFIDENTIAL AND NOT TO BE RELEASED WITHOUT AUTHORIZATION
== END 2020-11-24 09:05 | disposition home or self-care (01) ==
LOC: DS 06:20
PROVIDERS: ATTEND Colon & Rectal Surgery
PROC: 0DJD8ZZ Inspection of Lower Intestinal Tract, Via Natural or Artificial Opening Endoscopic (ICD-10-PCS; principal; 2020-11-24 07:00)
DX: K57.30 Diverticulosis of large intestine without perforation or abscess without bleeding (principal); D64.9 Anemia, unspecified; K64.8 Other hemorrhoids; Q43.8 Other specified congenital malformations of intestine; N42.89 Other specified disorders of prostate; G47.33 Obstructive sleep apnea (adult) (pediatric); I10 Essential (primary) hypertension; E78.2 Mixed hyperlipidemia; I48.91 Unspecified atrial fibrillation; R94.31 Abnormal electrocardiogram [ECG] [EKG]; D57.40 Sickle-cell thalassemia without crisis; Z86.010 Personal history of colon polyps; Z96.642 Presence of left artificial hip joint; Z87.891 Personal history of nicotine dependence; Z79.01 Long term (current) use of anticoagulants; Z88.8 Allergy status to other drugs, medicaments and biological substances; Z88.2 Allergy status to sulfonamides; Z86.711 Personal history of pulmonary embolism; Z86.718 Personal history of other venous thrombosis and embolism
CPT/HCPCS: J0690; J1644; J2704; J7121

== ENCOUNTER 2020-12-02 20:08 | Emergency (ER) | payer MEDICARE, BC ==
[~2020-12-02] VITALS: Ht 175.3 cm; Wt 108.0 kg
--- OUTSIDE RECORDS SUMMARY | 2020-12-02 20:10 | XMS ---
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 Linnette has no Care Guidelines for this patient. EAyeshaDAyesha VISIT COUNT (12 MO.) 1 [facility] 1 JO [facility] TOTAL 2 NOTE: Visits indicate total known visits. ED/UCC VISIT TRACKING (12 MO.) 12/02/2020 20:08 [facility] [place] TYPE: Emergency COMPLAINT: - FEVER, SHAKES, L HIP PAIN 02/04/2020 17:25 [facility] [place] TYPE: Emergency DIAGNOSES: - Weakness - Hypoxemia - Other injury of unspecified body region, initial encounter - Local infection of the skin and subcutaneous tissue, unspecified - Chills - Sepsis, unspecified organism - Severe sepsis without septic shock INPATIENT VISIT TRACKING (12 MO.) 02/17/2020 16:47 [facility] [place] TYPE: Physical Therapy DIAGNOSES: - Obesity, unspecified - Paroxysmal atrial fibrillation - Septic pulmonary embolism without acute cor pulmonale - Essential (primary) hypertension - Benign prostatic hyperplasia with lower urinary tract symptoms - Local infection of the skin and subcutaneous tissue, unspecified - Severe sepsis without septic shock - Presence of left artificial hip joint - Infection and inflammatory reaction due to internal left hip prosthesis, sequela - Infection and inflammatory reaction due to internal left hip prosthesis, subsequent encounter - Contusion of left hip, sequela - Other abnormalities of gait and mobility - Other obstructive and reflux uropathy - Other generalized epilepsy and epileptic syndromes, not intractable, without status epilepticus - Acute posthemorrhagic anemia - Thalassemia minor - sepsis - Sepsis, unspecified organism - Other injury of unspecified body region, initial encounter - Pain due to internal orthopedic prosthetic devices, implants and grafts, subsequent encounter - Other pulmonary embolism without acute cor pulmonale - Atrioventricular block, first degree [facility] DIAGNOSES: - Iron deficiency anemia, unspecified - Essential (primary) hypertension - Contusion of left hip, subsequent encounter - Thalassemia minor - Other injury of unspecified body region, initial encounter - Severe sepsis without septic shock - Sepsis, unspecified organism - Hypoxemia - Local infection of the skin and subcutaneous tissue, unspecified - Acute posthemorrhagic anemia - Paroxysmal atrial fibrillation 01/19/2020 10:32 [facility] [place] TYPE: Medical Surgical COMPLAINT: - LEFT TOTAL HIP REPLACEMENT (ASH) DIAGNOSES: - Benign prostatic hyperplasia with lower urinary tract symptoms - Epilepsy, unspecified, not intractable, without status epilepticus - Atrial premature depolarization - Other senior care (current) drug therapy - Allergy status to other drugs, medicaments and biological substances - Benign prostatic hyperplasia with lower urinary tract symptoms - Presence of left artificial hip joint - Constipation, unspecified - Epilepsy, unspecified, not intractable, without status epilepticus - Osteophyte, left hip - Other retention of urine - Allergy status to other drugs, medicaments and biological substances - Essential (primary) hypertension - Other termite control servicer (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
[2020-12-02] MEDS ORDERED: CEFUROXIME500 MG PO (22:59)
[2020-12-02] MEDS ORDERED: DOXYCYCLINE HY100 MG PO (22:59)
== END 2020-12-02 23:25 | disposition home or self-care (01) ==
LOC: ED 20:08
DX: M25.552 Pain in left hip (principal); R50.9 Fever, unspecified; Z20.822 Contact with and (suspected) exposure to COVID-19; R60.9 Edema, unspecified; D64.9 Anemia, unspecified; I10 Essential (primary) hypertension; E78.5 Hyperlipidemia, unspecified; Z87.891 Personal history of nicotine dependence; Z88.2 Allergy status to sulfonamides; Z88.8 Allergy status to other drugs, medicaments and biological substances; Z79.899 Other long term (current) drug therapy; Z79.01 Long term (current) use of anticoagulants
CPT/HCPCS: 71045; 73502; 80053; 81001; 83605; 85025; 85610; 85730; 99284-25; C9803; U0003

== ENCOUNTER 2020-12-03 17:16 | Inpatient (IN) | payer MEDICARE, BC ==
[~2020-12-03] VITALS: Ht 175.3 cm; Wt 111.0 kg
[~2020-12-03 17:16] MED LIST changes: +CEFUROXIME500 MG PO
--- OUTSIDE RECORDS SUMMARY | 2020-12-03 17:18 | XMS ---
PreManage Notification: BARNEY CÁRDENAS Security Vp Platforms Events No recent Security Events currently on file CRITERIA MET - PDMP - History of Sepsis Dx - [facility] - 2 Visits in 30 Days CARE PROVIDERS There are no care providers on record at this time. Linnette has no Care Guidelines for this patient. Liliya VISIT COUNT (12 MO.) 1 [facility] NOTE: Visits indicate total known visits. ED/C VISIT TRACKING (12 MO.) [facility] COMPLAINT: - FEVER, WEAKNESS 12/02/2020 20:08 [facility] TYPE: Emergency COMPLAINT: - FEVER, SHAKES, L HIP PAIN [facility] DIAGNOSES: - Weakness - Hypoxemia - Other injury of unspecified body region, initial encounter - Local infection of the skin and subcutaneous tissue, unspecified - Chills - Sepsis, unspecified organism - Severe sepsis without septic shock INPATIENT VISIT TRACKING (12 MO.) [facility]2020 [facility] DIAGNOSES: - Obesity, [...] - Atrioventricular block, first degree [facility] DIAGNOSES: - Iron [...] epilepticus - Atrial premature depolarization - Other supervisor intermediates (current) drug therapy - Allergy status to [...] substances - Essential (primary) hypertension - Other supervisor intermediates (current) drug therapy - Hyperlipidemia, unspecified - Presence of left artificial hip joint - Benign prostatic hyperplasia with lower urinary tract symptoms - Allergy status to sulfonamides - Unilateral primary osteoarthritis, left hip - Atrial premature depolarization - Other retention of urine - Other acute postprocedural pain - Essential (primary) hypertension - Hyperlipidemia, unspecified - Allergy status to sulfonamides - Constipation, unspecified [email or web address]
--- NOTE | 2020-12-04 11:28 | EKG ---
[facility] [address] [facility] [place], [place] [address] Signed Sinus rhythm with 1st degree AV block Nonspecific intraventricular block Nonspecific T wave abnormality Abnormal ECG No previous ECGs available Confirmed by LOREN HODGES DO ([id number]) on 12/04/2020 11:28:14 AM Electronically Signed By: LOREN HODGES DO 12/04/20 1128 PATIENT NAME: MELIABARNEY KIKO Electrocardiogram DATE OF : 42 PHYSICIAN: LOREN HODGES DO REPORT #: [id number] REPORT IS CONFIDENTIAL AND NOT TO BE RELEASED WITHOUT AUTHORIZATION
[2020-12-05] MEDS ORDERED: WARFARIN SODIUM2 MG PO (08:16)
[2020-12-05] MEDS ORDERED: PERIDEX473 M1 MM (16:43)
[2020-12-05] MEDS ORDERED: REFRESH CELLUV1 EACH OU (16:47)
--- NOTE | 2020-12-06 07:02 | OR ---
[facility] [address], [place] [address] Signed DATE OF OPERATION: 12/04/2020 SURGEON: Miesha Whitlock MD PREOPERATIVE DIAGNOSIS: Infected left THR. POSTOPERATIVE DIAGNOSIS: Infected left THR. PROCEDURE PERFORMED: Incision and drainage with debridement, left total hip. PAYROLL REPRESENTATIVE: Lisa Calderón PA-C. Lisa was present and critical for all portions of procedure. ANESTHESIA: General. BLOOD LOSS: 300 mL. Deep cultures were taken and sent to the lab. BRIEF HISTORY: Barney is a 80-year-old gentleman, who had a total hip arthroplasty by me in December of last year. He subsequently had an infection while I was off and was treated with an irrigation, debridement and poly exchange. He did well postoperatively and went through six weeks of IV antibiotics. Proteus mirabilis and MSSA were grown from the deep cultures. The patient did well and had no problems until about a week ago when he started having pain deep in his hip and posteriorly through to his ischium. He says he felt like he pulled his hamstrings. He subsequently presented to the ER on Friday, did not have a fever, and had no white count. At that time, imaging of the hip showed nothing eventful. He was sent home. He reappeared in the ER yesterday evening with increasing hip pain and fevers as high as 103 during the day. He was admitted to my service overnight and blood cultures were obtained, which showed gram-negative rods this morning. He did continue to have fevers that were managed with Tylenol and a normal white count on his lab work. Because of the increasing pain and positive blood cultures, I elected to take him to the operating room for an immediate irrigation and Electronically Signed By: MIESHA WHITLOCK MD 12/06/20 0702 PATIENT NAME: BARNEY CÁRDENAS OPERATIVE REPORT DATE OF : 42 REPORT #: [id number] PHYSICIAN: MIESHA WHITLOCK MD PCP: SERGIO MCMAHAN MD REPORT IS CONFIDENTIAL AND NOT TO BE RELEASED WITHOUT AUTHORIZATION [facility] [address] [facility] [place] [address] Signed debridement this afternoon with the possibility of a poly exchange and headliner exchange if it was a minimal infection. Risks and benefits of this were discussed with he and his extensively and they understood and wished to proceed. DESCRIPTION OF PROCEDURE: Once consent was obtained, he was taken to the operating room. After adequate anesthesia, he was placed in the right lateral decubitus position. He had an axillary roll placed and downside pressure points were well padded. The left hip was prepped and draped in a standard sterile fashion. There was no erythema about the hip. There was some warmth to it, but he had decent motion. The prior incision was marked out and incised longitudinally. It was extended about an inch inferiorly. This was carried through skin and subcutaneous tissue iliotibial band was pretty much unidentifiable. We did note the start of the bursa, which was bulging through the wound. The incision was carried through this and immediate cloudy fluid was obtained. This was cultured and sent off to the lab as well as to the [facility]. The bursa was fairly substantially filled with probably 60-70 mL of fluid. This was all sharply debrided down to the trochanter. The wound was then inspected and a sinus tract was noted inferiorly up into the anterior inferior aspect of the hip joint. I was able to trace through this with my finger down to the femoral neck of the prosthesis. We then went ahead and continued the modified Hardinge approach and split the abductors and debrided the capsule which was extensively thickened and showed marked fibrosis. The acetabulum was debrided of soft tissue and carried around posteriorly as well as anteriorly. Once we got to the anteroinferior aspect of the acetabulum while debriding the soft tissue, we entered a whole new pocket of about 30 mL that actually was anteroinferior to the acetabular cup and extended inferiorly to the ischium about 3 cm anteriorly and almost 5 cm posteriorly. This was an extensive abscess that I was unable to get to from an anterolateral approach. At that point, I felt that it was going to be critical for him to have the entire prosthesis removed and a two-stage revision performed through probably a posterior approach to allow visualization of this area along the ischium. Since we did not have the equipment or instruments to perform the extraction, I elected to go ahead and irrigate and debride his hip and transfer him to the specialist in [place]. We then continued the debridement as best we could, then irrigated under pulse lavage 3 L normal saline. We then did 1 L of dilute iodine soak for 10 minutes and did another 3 L of pulse lavage irrigation. Once this was accomplished, any devitalized tissue that we could find remaining was removed. The wound was closed in layers. The abductor was closed using #1 PDS. The IT band as best we could identify was closed using #1 PDS and the subcutaneous tissue with 2-0 Monocryl. The skin was closed with agustin. We did place a 10-Bruneian Thanh drain deep in the wound. We also placed a gram of ceftriaxone powder in the inferior abscess itself. Once this was completed, the wound was dressed with a JOSHUA wound VAC dressing and he was awakened and taken to the recovery room in satisfactory condition. All sponge, needle, and instrument counts were correct. He remained hemodynamically stable throughout the Electronically Signed By: MIESHA WHITLOCK MD 12/06/20 0702 PATIENT NAME: BARNEY CÁRDENAS OPERATIVE REPORT DATE OF : 42 REPORT #: [id number] PHYSICIAN: MIESHA WHITLOCK MD PCP: SERGIO MCMAHAN MD REPORT IS CONFIDENTIAL AND NOT TO BE RELEASED WITHOUT AUTHORIZATION [address] [address] Signed procedure. Miesha Whitlock MD BA/NIDIA /[id number] Copies: ~ Electronically Signed By: MIESHA WHITLOCK MD 12/06/20 0702 PATIENT NAME: BARNEY CÁRDENAS OPERATIVE REPORT DATE OF : 42 REPORT #: [id number] PHYSICIAN: MIESHA WHITLOCK MD PCP: SERGIO MCMAHAN MD REPORT IS CONFIDENTIAL AND NOT TO BE RELEASED WITHOUT AUTHORIZATION
== END 2020-12-08 08:45 | disposition short-term general hospital (02) | DRG 481 ==
LOC: ED 17:16 → MS 21:31
PROVIDERS: ADMIT Specialist; ATTEND Specialist
PROC: 5A09357 Assistance with Respiratory Ventilation, Less than 24 Consecutive Hours, Continuous Positive Airway Pressure (ICD-10-PCS; 2020-12-03)
PROC: 0S9B0ZZ Drainage of Left Hip Joint, Open Approach (ICD-10-PCS; principal; 2020-12-04 15:00)
DX: T84.54XA Infection and inflammatory reaction due to internal left knee prosthesis, initial encounter (principal); R78.81 Bacteremia; L02.416 Cutaneous abscess of left lower limb; I10 Essential (primary) hypertension; E78.5 Hyperlipidemia, unspecified; Z86.711 Personal history of pulmonary embolism; G40.909 Epilepsy, unspecified, not intractable, without status epilepticus; N40.0 Benign prostatic hyperplasia without lower urinary tract symptoms; Z88.2 Allergy status to sulfonamides; E78.00 Pure hypercholesterolemia, unspecified; I48.91 Unspecified atrial fibrillation; Z88.8 Allergy status to other drugs, medicaments and biological substances; Z79.899 Other long term (current) drug therapy; Z79.01 Long term (current) use of anticoagulants
CPT/HCPCS: 01210; 36569; 51798; 71045; 74177; 80048; 80053; 80202; 80500; 81001; 83605; 85025; 85610; 85730; 93005; 93010; 96375; 97116; 97162; 99285-25; C1751; C9803; J0696; J0697; J1170; J1650; J1885; J2370; J2704; J3010; J3370; J3480; J7030; J7060; Q9967; U0003

== ENCOUNTER 2022-04-09 07:53 | Emergency (ER) | payer MEDICARE, BC ==
[~2022-04-09] VITALS: Ht 175.3 cm; Wt 110.7 kg
[~2022-04-09 07:53] MED LIST changes: +PERIDEX473 M1 MM; +REFRESH CELLUV1 EACH OU; +WARFARIN SODIUM2 MG PO
--- OUTSIDE RECORDS SUMMARY | 2022-04-09 07:56 | XMS ---
PreManage Notification: BARNEY CÁRDENAS Security Binding Printer Events No recent Security Events currently on file CRITERIA MET - [facility] CARE PROVIDERS SERGIO MCMAHAN Internal Medicine 12/04/2020-Current PHONE: Unknown [place] has no Care Guidelines for this patient. Care History Medical/Surgical 12/04/2020 [facility] - Patient is currently established with [facility]. If patient is seen in the ED during business hours. Please contact CHWs at [facility]. Care Recommendation: If this patient has had 5 or more Emergency Department visits in the last 12 months.\T\nbsp; Patient will require education on the scope and purpose of the ED as an acute care provider not a Primary Care Provider and should not be utilized for chronic conditions.\T\nbsp; These are guidelines and the provider should exercise clinical judgment when providing care. E.D. VISIT COUNT (12 MO.) [address] [place] [address] TOTAL 1 NOTE: Visits indicate total known visits. ED/UCC VISIT TRACKING (12 MO.) 04/09/2022 07:54 [facility] [place] TYPE: Emergency COMPLAINT: - FALL, L ELBOW PAIN/INJURY INPATIENT VISIT TRACKING (12 MO.) No inpatient visits to display in this time frame [email or web address]
[2022-04-09] MEDS ORDERED: GABAPENTIN300 MG PO (08:16)
== END 2022-04-09 09:14 | disposition home or self-care (01) ==
LOC: ED 07:53
DX: S52.122A Displaced fracture of head of left radius, initial encounter for closed fracture (principal); I10 Essential (primary) hypertension; E78.5 Hyperlipidemia, unspecified; G47.30 Sleep apnea, unspecified; Z79.899 Other long term (current) drug therapy; Z88.2 Allergy status to sulfonamides; Z88.8 Allergy status to other drugs, medicaments and biological substances; W19.XXXA Unspecified fall, initial encounter
CPT/HCPCS: 73080; 99283-25

== ENCOUNTER 2023-12-29 05:36 | Inpatient (IN) | payer MEDICARE, BC ==
[~2023-12-29] VITALS: Ht 175.3 cm; Wt 107.8 kg
[2023-12-29] VITALS (7 sets, daily range): BP systolic 112–128; BP diastolic 50–70
[~2023-12-29 05:36] MED LIST changes: +ADRENOID CAPSU1 EACH PO; +ADULT LOW DOSE81 MG PO; +ATORVASTATIN CA10 MG PO; +CEFDINIR300 MG PO; +FINASTERIDE5 MG PO; +FML5 ML OS; -FML5 ML OU; +GABAPENTIN100 MG PO; +HYZAAR 100-251 EACH PO; +JANTOVEN7.5 MG PO; +LEVOFLOXACIN500 MG PO; -LOSARTAN-HCTZ1 EAC2 PO; +MULTI VITAMIN1 EACH PO; +MURO-12815 ML OU; +PATADAY5 ML OU; -RESTASIS MULTI5.5 ML OU; +RESTASIS1 DROP OU; +WARFARIN SODIUM5 MG PO; +[UNRECOGNIZED DRUG - OTHER] OU
[2023-12-29 06:17] LABS: BILIRUBIN, URINE NEGATIVE (negative); BLOOD/HGB, URINE TRACE-I (Negative); KETONE, URINE NEGATIVE (Negative); LEUK ESTERASE, URINE MODERATE (negative); NITRITE, URINE POSITIVE (negative)
[2023-12-29 06:30] LABS: BACTERIA, URINE 2+ /hpf (negative); CASTS, URINE NONE SEEN \\lpf; COLLECTION TYPE, URINE CLEAN CATCH; CRYSTALS, URINE NONE SEEN (0-1+); EPITHELIAL CELLS, URINE 0 /lpf (0-1+); REFLEX CULTURE, URINE Yes (No); WHITE BLOOD CELLS, URINE >50 /HPF (0-5)
[2023-12-29 06:50] LABS: BASOPHILS 0.2 % (0-2); EOSINOPHILS 5.2 % (0-6); HEMATOCRIT 35.9 % (35.0-50.0); HEMOGLOBIN 11.6 g/dL (12.0-18.0); LYMPHOCYTES 4.1 % (24-44); MCH 22.6 (27-36); MCHC 32.2 g/dl (30-36); MCV 70.1 fl (81-99); MONOCYTES 7.7 % (0-12); NEUTROPHILS 82.8 % (39-80); PLATELET COUNT 218 K/uL (140-440); RBC 5.13 M/ul (4.3-5.7); RDW 16.6 (10.5-15.0)
[2023-12-29 07:05] LABS: INFLUENZA B NAA NEGATIVE (NEGATIVE); RESPIRATORY SYNCYTIAL VIR NAA NEGATIVE (NEGATIVE)
[2023-12-29 07:07] LABS: ALBUMIN 3.8 g/dL (3.4-5.0); ALBUMIN/GLOBULIN RATIO 1.31 (1.1-2.4); ANION GAP 12.5 (7-21); BILIRUBIN, TOTAL 1.1 ng/dL (0.2-1.0); BUN/CREATININE RATIO 16.16 (6.0-28.6); CALCIUM 8.9 mg/dL (8.5-10.1); CREATININE, SERUM 0.99 mg/dL (0.70-1.30); POTASSIUM 3.5 mmol/L (3.5-5.1); PROTEIN, TOTAL 6.7 g/dL (6.4-8.2)
[2023-12-29 07:13] LABS: INR 2.54 (0.80-1.30); PROTIME 26.4 Sec (11.2-14.2)
[2023-12-29] MEDS ORDERED: AZITHROMYCIN/DEXTROSE 500 MG/250 ML BAG IV ONE (07:30)
[2023-12-29] MEDS ORDERED: CEFTRIAXONE/SODIUM CHLORIDE 2 GM/100 ML PIGGYBACK IV SCH (09:00)
--- NOTE | 2023-12-29 09:32 | NUR ---
BEDSIDE REPORT RECEIVED FROM LUAN LEVIN. PT ALERT AND AWAKE. CALL LIGHT IN REACH.
--- NOTE | 2023-12-29 09:34 | NUR ---
REPORT GIVEN TO LUAN VASQUEZ
--- NOTE | 2023-12-29 10:24 | NUR ---
UR CLINICAL REVIEW: 2 MN CALI, MEETS OBS MEDICARE OBS 12/29/23 @ 0826 ORDER MATCHES STATUS NO AUTH REQUIRED PER MEDICARE RULES. PLAN TO DC TO HOME WHEN STABLE. 12/30/23
[2023-12-29] MEDS ORDERED: PHARMACY RENAL DOSE ADJUSTMENT 1 DOSE MISC PO SCH (12:00)
--- NOTE | 2023-12-29 13:10 | NUR ---
Spoke with Marcin. He states he lives with his in a one story home. He does not have steps. Pt states concern he has taken multiple antibiotics in the past and feels he is becoming resistant. He states he drives, they have a house keeper that shops, cooks, and cleans. His is a nurse. He asks frequently if there is someone who can tell him what to do about his antibiotic resistance. I encouraged him to speak with the hospitalist or his pcp. He states he has discussed with Dr. Moore, Uro. He is concerned continues to be prescriped antibiotics. We discussed the alternative could have a serious outcome if he did not treat and would get urosepsis. Pt denies need and plans on dc to home when cleared medically. I attempted to call his to check for further needs, no answer, message left.
--- NOTE | 2023-12-29 13:21 | EKG ---
[facility] [address] [facility] [place] [address] Signed Atrial fibrillation Right bundle branch block T wave abnormality, consider lateral ischemia Abnormal ECG When compared with ECG of 09-SEP-2022 06:06, No significant change was found Confirmed by PRO DAVIDSON MD ([id number]) on 12/29/2023 1:21:34 PM Electronically Signed By: PRO DAVIDSON 12/29/23 1321 PATIENT NAME: FARIHABARNEY ARELLANO KIKO Electrocardiogram DATE OF : 42 PHYSICIAN: PRO DAVIDSON REPORT #: [id number] REPORT IS CONFIDENTIAL AND NOT TO BE RELEASED WITHOUT AUTHORIZATION
--- NOTE | 2023-12-29 13:26 | NUR ---
VISITED DURING SPIRITUAL CARE ROUNDS. PT RECEIVING NURSING CARE. DID NOT INTERRUPT. PROVIDED PRAYER.
[2023-12-29] MEDS ORDERED: FLUOROMETHOLONE5 ML OU (14:06)
--- NOTE | 2023-12-29 14:28 | NUR ---
medications reconciled using pharmacy records and patient interview
--- NOTE | 2023-12-29 15:18 | NUR ---
PT RESTS IN BED WITH EYES CLOSED, RESP EVEN AND UNLABORED.
[2023-12-29] MEDS ORDERED: WARFARIN PER PHARMACY PROTOCOL PO SCH ×2 (16:00)
[2023-12-29] MEDS ORDERED: WARFARIN SOD 5 MG TAB PO SCH (16:00)
--- NOTE | 2023-12-29 16:05 | NUR ---
PATIENT GIVEN 5MG OF PO COUMADIN.
--- NOTE | 2023-12-29 17:20 | NUR ---
PT SITS UP IN RECLINER, EATS DINNER, WISHES TO REMOVE O2 NC, ROOM AIR TRIAL STARTED. CALL LIGHT IN REACH. IS PROVIDED, EDUCATION ON USE OF IS PROVIDED, PT VERBALIZES UNDERSTANDING.
--- NOTE | 2023-12-29 17:54 | NUR ---
PT EATS 100% OF DINNER. USES IS CORRECTLY. O2 SATS 95% WITH USE OF IS, PT DROPS TO 89% WITHOUT DEEP BREATHS. 2L O2 NC APPLIED, PT MAINTAINS O2 SATS AT 94%.
--- NOTE | 2023-12-29 18:12 | NUR ---
PT ON CONTINUOUS PULSE OXIMETER. SPOUSE BRINGS IN CPAP MACHINE AT BEDSIDE.
--- NOTE | 2023-12-29 19:20 | NUR ---
Pt stated pt had a reaction to Rocephin in the past. Pt received Rocephin this am at 0900. Pt redness and warmth noted from below nipple area around back, stomach and down to upper thighs and tyler, slight erythema present arms, pt itching. no SOB noted. Dr Olmedo notified via phone, new orders for Benadryl 25mg po obtained.
[2023-12-29] MEDS ORDERED: diphenhydrAMINE HCL 25 MG CAP PO ONE (19:30)
--- NOTE | 2023-12-29 19:34 | NUR ---
voided using self cath, not measured 'had a good stream as per '. Pt back to bed, erythema still present, Pt helped with repositioning. O2 2LNC, cpox on at bedside. benadryl given as per orders.
--- NOTE | 2023-12-29 20:45 | NUR ---
pt tried to get out of bed, bed alrm going off. Pt on 2LNC, lungs clear dim at baes, no cough noted at this time, abd large soft, SL LH patent. edema to ankles and feet, feet elevated. Pt self caths and self cathed earlier when was here. Pt back to bed.. home eye drops applied by pt. no further c/o itching, decreaed redness of body noted. home CPAP at bedside, O2 2L chronic, bed alrm on per nursing judgement
[2023-12-29] MEDS ORDERED: ACETAMINOPHEN 500 MG TAB PO PRN (21:15)
[2023-12-30] VITALS (10 sets, daily range): BP systolic 103–128; BP diastolic 51–79
--- NOTE | 2023-12-30 00:30 | NUR ---
CPOX ALARMING, pt DISCONNECTED CORD. SPO2 WNL WITH 2L OXYGEN BY NC IN PLACE. pt CONFUSED UPON AWAKENING, REORIENTS EASILY TO PLACE. 1PA TO STAND WITH FWW, 2 STAFF IN ROOM ASSISTING pt TO STAND AT SIDE OF BED FOR STRAIGHT CATH. STRAIGHT CATH IN URINAL. BACK IN BED. VS COMPLETE. FEBRILE, PRIMARY RN NOTIFIED AND IN ROOM. pt NOW USING IS.
--- NOTE | 2023-12-30 00:35 | NUR ---
temp 101 oral, tylenol 500mg po give, working w his IS. cooperative with vitals and assessment
--- NOTE | 2023-12-30 00:55 | NUR ---
pt SITTING UP IN BED, TEMPERATURE REASSESSED, 98.3 ORAL AFTER IS USE. HOME CPAP APPLIED. SPO2 92% WHILE AWAKE. BED ALARM ON.
--- NOTE | 2023-12-30 01:03 | NUR ---
pt has a temp of 101 earlier, was medicated with Tylenol 500mg po, effective, temp went down to 98.3 orally. Pt awas on CPAP. desatted to 84% when in a deep sleep. RT notified. O2 2LNC bleeding into CPAP. sats 92%. all procedures explained to pt, cooperative.
--- NOTE | 2023-12-30 03:22 | NUR ---
EYES CLOSED, RESTING, USING CPAP WITH BLEEDING O2, SATS 95%, PULSE 60'S NO RESP DISTRESS, TURNS AND REPOSITIONS SELF IN BED, LE ELEVATED
--- NOTE | 2023-12-30 05:06 | NUR ---
Pt resting, eyes closed, turns and repositions self in bed. using CPAP w 6L bleeding in O2. Bedside CPOX in place, sats 93% pulse 60, rest 15. no s/sx distress. Has slept most of this shift.
--- NOTE | 2023-12-30 05:26 | NUR ---
awake, cooperative with lab draws. was using cpap with 6L inbleeding O2. back to 2L NC, lungs clear dim at baes. using IS at bedside, CPOX on at bedside. sats 90% on 2L. Pt c/o hips pain, medicated with Tylenol 500mg po, tolerating sips of fluids, helped with repositioning, denies need to void. Pt self caths. supplies in closet. Pt aware, no further requests
[2023-12-30 05:27] LABS: EOSINOPHILS 8.7 % (0-6); HEMATOCRIT 36.1 % (35.0-50.0); HEMOGLOBIN 11.6 g/dL (12.0-18.0); LYMPHOCYTES 6.6 % (24-44); MCH 22.7 (27-36); MCHC 32.3 g/dl (30-36); MCV 70.3 fl (81-99); MONOCYTES 6.9 % (0-12); NEUTROPHILS 77.8 % (39-80); PLATELET COUNT 196 K/uL (140-440); RBC 5.13 M/ul (4.3-5.7); RDW 16.7 (10.5-15.0)
[2023-12-30 05:41] LABS: ALBUMIN 3.3 g/dL (3.4-5.0); ALBUMIN/GLOBULIN RATIO 1.18 (1.1-2.4); ANION GAP 8.4 (7-21); BILIRUBIN, TOTAL 0.9 ng/dL (0.2-1.0); BUN/CREATININE RATIO 14.67 (6.0-28.6); CALCIUM 8.3 mg/dL (8.5-10.1); CREATININE, SERUM 1.09 mg/dL (0.70-1.30); MAGNESIUM 2.1 mg/dL (1.8-2.4); POTASSIUM 3.4 mmol/L (3.5-5.1); PROTEIN, TOTAL 6.1 g/dL (6.4-8.2)
[2023-12-30 05:53] LABS: INR 2.11 (0.80-1.30); PROTIME 22.8 Sec (11.2-14.2)
--- NOTE | 2023-12-30 06:06 | NUR ---
Pt was on 2L NC, sleeping, desatted to 86% on 2L whith O2 while sleeping. When awake his sats are between 90-93%. hob elevated, placed back on CPCP with inbleeding of 6LO2, sats up to 91-95%. asked about, denies need to void at this time, pt self caths. "I do not need to cath yet" stated
[2023-12-30] MEDS ORDERED: OPTH OU SCH (09:00)
[2023-12-30] MEDS ORDERED: CEFTRIAXONE/SODIUM CHLORIDE 1 GM/100 ML PIGGYBACK IV SCH (09:00)
[2023-12-30] MEDS ORDERED: PATIENT'S OWN MEDICATION(S) ORDER OU SCH (09:00)
[2023-12-30] MEDS ORDERED: AZITHROMYCIN 500 MG in DEXTROSE 5% 250 ML IV SCH (09:00)
[2023-12-30] MEDS ORDERED: FLUOROMETHOLONE 0.1% OU SCH (09:00)
[2023-12-30] MEDS ORDERED: POVIDONE OU SCH (09:00)
[2023-12-30] MEDS ORDERED: POTASSIUM CHLORIDE 10 MEQ TABCR PO ONE (09:15)
--- NOTE | 2023-12-30 09:31 | NUR ---
PATIENT GIVEN RESTASIS EYE DROPS. 40 MEQ OF PO POTASSIUM GIVEN. LAB IN TO DRAW BLOOD CULTURES. SPOUSE WANTS TO WAIT ON IV ABX UNTIL THEY TALK TO THE DOCTOR.
--- NOTE | 2023-12-30 10:28 | NUR ---
VISITED DURING SPIRITUAL CARE ROUNDS. PT SUPPORTED BY IN ROOM; STRONG RELATIONAL AND ALEXANDREA RESOURCES EXHIBITED. PERSONNEL CLERKS SUPERVISOR PROVIDED SUPPORTIVE PRESENCE, HOSPITALITY, PRAYER. PT AND EXPRESSED GRATITUDE.
--- NOTE | 2023-12-30 10:30 | NUR ---
Admin tylenol 500mg po for reports of 5/10 generalized pain.
--- NOTE | 2023-12-30 10:46 | NUR ---
UR CLINICAL REVIEW: 2 MN FOR VERSALUS-MEETS INPT CRITERIA MEDICARE OBS TO INPT 12/30/23 @ 0850 WILL UPDATE REG NO AUTH REQUIRED PER MEDICARE GUIDELINE ANTICIPATE DISCHARGE IN 24 HOURS
--- NOTE | 2023-12-30 10:53 | NUR ---
ASKED PATIENT THIS MORNING IF HE WOULD LIKE TO EAT BREAKFAST IN HIS CHAIR AND HE SAID NO HE WANTED TO HAVE BREAKFAST IN BED. SET PATIENT UP THIS MORNING TO BRUSH HIS TEETH AND WASH HIS FACE. IN ROOM.
[2023-12-30] MEDS ORDERED: levoFLOXacin 750 MG/150 ML BAG IV SCH (10:54)
--- NOTE | 2023-12-30 11:45 | NUR ---
No plan for dc today per Dr. Olmedo. has been in and out. Lengthy conversation with Amber last evening.
--- NOTE | 2023-12-30 15:02 | NUR ---
BROUGHT PATIENT TWO FRESH GLASSES OF ICE WATER.
--- NOTE | 2023-12-30 15:08 | NUR ---
Patient awake, alert and oriented x4, no acute distress. Patient is on 2L oxygen per nc, respirations even and non labored. Patient has good po intake, q/s urine output. Patient denies needs at this time.
[2023-12-30] MEDS ORDERED: WARFARIN SOD 7.5 MG TAB PO SCH (16:00)
--- NOTE | 2023-12-30 16:08 | NUR ---
Patient requesting his eye drops to be left on bedside table. He declined to allow me to secure in lock box.
--- NOTE | 2023-12-30 17:02 | NUR ---
Tylenol 500mg po admin for reports of 5/10 joint pain.
--- NOTE | 2023-12-30 17:19 | NUR ---
Patient requesting his home dose of phenobarbital. Called Dr. Herndon, new order obtained to start phenobarbital per homes dose/schedule. Order placed for phenobarbital 180mg po at hs.
--- NOTE | 2023-12-30 19:20 | NUR ---
REPORT RECEIVED FROM DAY RN. PATIENT RESTING IN BED. OXYGEN IN PLACE ON AT 2L/MIN VIA NC. DENIES ANY NEEDS AT THIS TIME. CALL LIGHT WITHIN REACH.
--- NOTE | 2023-12-30 20:26 | NUR ---
PATIENT RESTING IN BED. GIVEN HS MEDICATIONS. VSS. DENIES ANY PAIN OR DISCOMFORT AT THIS TIME. DENIES ANY NEED TO VOID AT THIS TIME. LUNGS CTA, BOWEL TONES ACTIVE X 4. HEART RATE IRREGULAR. NO FURTHER NEEDS AT THIS TIME. CALL LIGHT WITHIN REACH, BED ALARM ON.
--- NOTE | 2023-12-30 20:55 | NUR ---
PATIENT CALLED. PATIENT GOT UP TO THE BATHROOM TO DO SELF CATH. PATIENT STATED THAT HE WILL PULL THE CALL BUTTON IF HE NEEDS HELP. 650ML YELLOW URINE OUT. PATIENT IS BACK IN BED. NO FURTHER NEEDS AT THIS TIME. BED ALARM ON FOR SAFETY. SIDE TABLE X2 AND CALL LIGHT WITHIN REACH.
--- NOTE | 2023-12-30 22:36 | NUR ---
PATIENT RESTING IN BED WITH CPAP IN PLACE. 6L OXYGEN PIPED INTO CPAP MASK. CPOX READINGS WNL. PATIENT AWAKE WATCHING TV. DENIES ANY NEEDS AT THIS TIME. CALL LIGHT WITHIN REACH.
--- NOTE | 2023-12-31 00:16 | NUR ---
PATIENT RESTING IN BED WITH EYES CLOSED. RESPIRATIONS EVEN AND UNLABORED. CPAP ON AND FUNCTIONING WNL, CPOX READINGS WNL. CALL LIGHT WITHIN REACH.
--- NOTE | 2023-12-31 01:04 | NUR ---
PATIENT OOB AMBULATED TO BATHROOM WITH 1 PA ASSIST. VOIDING QUANITY SUFFICIENT. STEADY ON FEET. BACK IN BED. NO FURTHER NEEDS AT THIS TIME. CALL LIGHT WITHIN REACH.
--- NOTE | 2023-12-31 03:01 | NUR ---
PATIENT RESTING IN BED. CPAP IN PLACE. CPOX READINGS WNL. RESPIRATIONS EVEN AND UNLABORED. CALL LIGHT WITHIN REACH, BED ALARM ON.
--- NOTE | 2023-12-31 03:38 | NUR ---
NOTIFIED OF BLOOD CULTURE PRELIMINARY RESULTS. TELEPHONE ORDERS RECEIVED AND VERIFIED VIA VERBAL READ BACK FOR REPEAT BLOOD CULTURE LABS.
[2023-12-31 04:12] VITALS: BP 117/75
[2023-12-31 04:13] VITALS: BP 117/75
--- NOTE | 2023-12-31 04:22 | NUR ---
CALL LIGHT ANSWERED. PATIENT AMBULATED TO BATHROOM WITH 1 PA ASSIST AND FWW. TOLLERATED WELL. PATIENT USED URINAL TO VOID 300MLS OF YELLOW URINE. VSS. LUNGS CLEAR IN UPPER LOBES AND DIMINISHED IN LOWER LOBES. C/O GENERALIZED ACHES, PRN GIVEN SEE MAR. CPAP IN PLACE, CPOX READINGS WNL. NO FURHTER NEEDS AT THIS TIME. CALL LIGHT WITHIN REACH, BED ALARM ON.
[2023-12-31 06:02] LABS: INR 1.92 (0.80-1.30); PROTIME 21.1 Sec (11.2-14.2)
--- NOTE | 2023-12-31 06:30 | NUR ---
PATIENT RESTING IN BED, IV ABX RUNNING WITH NO ISSUES OR CONCERNS. Ptient denies any nausea, abd pain/discomfort. Reports passing gas. PROVIDER IN ROOM WITH PATIENT AT THIS TIME. TURNER LIGHT WITHIN REACH.
--- NOTE | 2023-12-31 06:39 | NUR ---
PATIENT RESTING IN BED WITH EYES CLOSED. RESPIRATIONS EVEN AND UNLABORED. PATIENT LUNGS CTA THIS AM, DENIES ANY SOB. DENIES ANY PAIN THIS AM. PATIENT WITH CPAP IN PLACE AND CPOX READINGS WNL. CALL LIGHT WITHIN REACH.
--- NOTE | 2023-12-31 07:00 | NUR ---
SBA. PATIENT UP TO THE BATHROOM AND USED THE URINAL. VOIDED 150ML DARK URINE. PATIENT IS BACK IN BED. NO OTHER NEEDS AT THIS TIME. BED ALARM ON.
--- NOTE | 2023-12-31 09:06 | NUR ---
Patient is awake, alert and oriented x4, no distress. Patient placed on room air, respirations even and non labored, sp02 91%. Patient denies shortness of breath. Patient able to demonstrate proper ISS use at this time, enc use 10x per hr-pt reports his understanding.
[2023-12-31] MEDS ORDERED: LEVOFLOXAC750 MG/150 IV (10:29)
[2023-12-31] MEDS ORDERED: LEVOFLOXACIN750 MG PO (10:30)
--- NOTE | 2023-12-31 10:30 | NUR ---
AFTER I GOT PATIENT'S VITALS DONE I HANDED PATIENT HIS IS MACHINE HE DID IT TEN TIMES. GOT HIM FRESH ICE WATER. PATIENT LAYING IN BED WATCHING TV AND VISITING HIS IN ROOM.
--- NOTE | 2023-12-31 10:32 | NUR ---
VISITED DURING SPIRITUAL CARE ROUNDS. PT WORKING WITH RESPIRATORY THERAPY AMBULATING IN HALLWAY. DID NOT INTERRUPT. PROVIDED PRAYER.
[2023-12-31 10:35] VITALS: BP 128/66
--- NOTE | 2023-12-31 11:19 | NUR ---
GOT PATIENT UP TO HIS CHAIR FOR BREAKFAST. GOT HIM FRESH ICE WATER. CHANGED HIS BED LINENS. ASKED HIM IS THERE ANYTHING ELSE I COULD HELP WITH AND HE SAID NO.
== END 2023-12-31 11:32 | disposition home or self-care (01) | DRG 193 ==
LOC: ED 05:36 → MS 05:38
PROVIDERS: Family Medicine; ADMIT Internal Medicine; ATTEND Internal Medicine
DX: J18.9 Pneumonia, unspecified organism (principal); J96.01 Acute respiratory failure with hypoxia; N39.0 Urinary tract infection, site not specified; R21 Rash and other nonspecific skin eruption; D64.9 Anemia, unspecified; I10 Essential (primary) hypertension; I48.91 Unspecified atrial fibrillation; G47.30 Sleep apnea, unspecified; N40.0 Benign prostatic hyperplasia without lower urinary tract symptoms; E78.00 Pure hypercholesterolemia, unspecified; Z98.890 Other specified postprocedural states; Z88.2 Allergy status to sulfonamides; Z88.8 Allergy status to other drugs, medicaments and biological substances; Z86.711 Personal history of pulmonary embolism; Z79.899 Other long term (current) drug therapy; Z79.01 Long term (current) use of anticoagulants
CPT/HCPCS: 36415; 51701; 70450; 71045; 80053; 81001; 83605; 83735; 85025; 85610; 87040; 87077; 87088; 87186; 87502; 93005; 93010; 94760; 94761; 94762; 96374; 96375; 97110; 97161; 97165; 97530; 97535; 99285-25; A9270; G0378; J0456; J0696; J1956; J7060; U0002

== ENCOUNTER 2024-12-10 22:03 | Emergency (ER) | payer MEDICARE, BC ==
[~2024-12-10] VITALS: Ht 175.3 cm; Wt 110.5 kg
[~2024-12-10 22:03] MED LIST changes: +FLUOROMETHOLONE5 ML OU; +LEVOFLOXAC750 MG/150 IV; +LEVOFLOXACIN750 MG PO; +LOSARTAN-HCTZ1 EACH PO; +PREDNISOLONE ACE5 ML OS; +RESTASIS1 DROP OD; +VITAMIN B121000 MCG PO
[2024-12-10 22:59] VITALS: BP 158/70
== END 2024-12-10 23:00 | disposition home or self-care (01) ==
LOC: ED 22:03
DX: H11.32 Conjunctival hemorrhage, left eye (principal); I10 Essential (primary) hypertension; E78.5 Hyperlipidemia, unspecified; G47.33 Obstructive sleep apnea (adult) (pediatric); I48.91 Unspecified atrial fibrillation; Z88.2 Allergy status to sulfonamides; Z88.1 Allergy status to other antibiotic agents; Z79.01 Long term (current) use of anticoagulants; Z79.899 Other long term (current) drug therapy
CPT/HCPCS: 99282

== ENCOUNTER 2025-01-26 21:56 | Inpatient (IN) | payer MEDICARE, BC ==
[~2025-01-26] VITALS: Ht 175.3 cm; Wt 105.5 kg
[2025-01-26] MEDS ORDERED: LOSARTAN-HCTZ1 EAC2 PO (22:10)
[2025-01-26] MEDS ORDERED: NITROFURANTOIN100 M1 PO (22:10)
[2025-01-26 22:28] LABS: BLOOD/HGB, URINE TRACE-I (Negative); KETONE, URINE NEGATIVE (Negative); LEUK ESTERASE, URINE NEGATIVE (negative); NITRITE, URINE NEGATIVE (negative)
[2025-01-26 22:30] LABS: BASOPHILS 0.4 % (0.2-1.2); EOSINOPHILS 0.4 % (0.8-7.0); LYMPHOCYTES 3.7 % (21.8-53.1); MCH 22.8 PG (25.7-32.2); MCHC 32.9 g/dL (32.3-36.5); MCV 69.3 fL (79.0-92.2); MONOCYTES 5.8 % (5.3-12.2); NEUTROPHILS 89.3 % (34.0-67.9); RBC 5.31 M/uL (4.63-6.08)
[2025-01-26] MEDS ORDERED: ACETAMINOPHEN 500 MG TAB PO ONE (22:30)
[2025-01-26 22:35] LABS: BACTERIA, URINE RARE /hpf (negative); CASTS, URINE NONE SEEN \\lpf; CRYSTALS, URINE NONE SEEN (0-1+); EPITHELIAL CELLS, URINE SQUAMOUS 1+ /lpf (0-1+)
[2025-01-26 22:36] LABS: REFLEX CULTURE, URINE Yes (No)
[2025-01-26 22:44] LABS: ALT (SGPT) 46.0 U/L (14-59); AST (SGOT) 40.0 U/L (15-37); GLOMERULAR FILTRATION RATE,EST 80.0 mL/min (>60); PROTEIN, TOTAL 6.9 g/dL (6.4-8.2); UREA NITROGEN 19.0 mg/dL (7-18)
[2025-01-26] MEDS ORDERED: DEXAMETHASONE SOD PHOS 4 MG/ML VIAL IV ONE (23:15)
[2025-01-26] MEDS ORDERED: AMP/SULBACTAM SOD 3 GM in SODIUM CHLORIDE 0.9% 100 ML IV ONE (23:15)
[2025-01-27] VITALS (10 sets, daily range): BP systolic 98–125; BP diastolic 54–70
[2025-01-27] MEDS ORDERED: ACETAMINOPHEN 325 MG TAB PO PRN (02:15)
[2025-01-27 02:34] LABS: INR 2.64 (0.80-1.30); PROTIME 26.7 Sec (11.2-14.2)
--- NOTE | 2025-01-27 03:44 | NUR ---
PATIENT ADMITTED TO MS RM 122, ORIENTED TO ROOM. ASSESSMENT COMPLETED. TELE MONITOR IN PLACE, CPOX IN PLACE. PATIENT ALERT AND ORIENTED X4, HE ANSWERS ALL QUESTIONS APPROPRIATELY. CALL LIGHT IN REACH.
--- NOTE | 2025-01-27 04:34 | NUR ---
CALL LIGHT ANSWERED, PRN MEDICATION GIVEN TO PATIENT FOR PAIN PER REQUEST. PATIENT DESCRIBES IT 1/10 GENERAL DISCOMFORT IN HIS BACK. HE DENIES ANY OTHER NEEDS, CALL LIGHT IN REACH
--- NOTE | 2025-01-27 05:15 | NUR ---
CALL LIGHT ANSWERED, PATIENT UP TO RESTROOM. AMBULATORY WITHOUT ASSISTANCE. DECLINES USE OF WALKING CANE. PATIENT BACK TO BED WITHOUT DIFFICULTY. VS OBTAINED AND RECORDED. INTAKE AND OUTPUT DOCUMENTED. PATIENT DENIES ANY NEEDS, CALL LIGHT IN REACH
[2025-01-27 05:27] LABS: BASOPHILS 0.3 % (0.2-1.2); EOSINOPHILS 0.4 % (0.8-7.0); LYMPHOCYTES 4.1 % (21.8-53.1); MCH 22.8 PG (25.7-32.2); MCHC 33.0 g/dL (32.3-36.5); MCV 69.1 fL (79.0-92.2); MONOCYTES 4.2 % (5.3-12.2); NEUTROPHILS 90.3 % (34.0-67.9); RBC 4.95 M/uL (4.63-6.08)
[2025-01-27 05:41] LABS: ALT (SGPT) 41.0 U/L (14-59); AST (SGOT) 25.0 U/L (15-37); GLOMERULAR FILTRATION RATE,EST 75.0 mL/min (>60); PROTEIN, TOTAL 6.5 g/dL (6.4-8.2); UREA NITROGEN 19.0 mg/dL (7-18)
[2025-01-27 05:49] LABS: SMEAR REVIEW BLOOD SEE COMMENTS
--- NOTE | 2025-01-27 05:55 | NUR ---
VISUAL MERCHANDISING COORDINATOR OBTAINED VITALS AND INTAKE. NO NEW OUTPUT AT THIS TIME. PT ICE WATER REFILLED. PT STATES NO NEEDS AT THIS TIME. CALL LIGHT WITHIN REACH AND BED ALARM ON.
--- NOTE | 2025-01-27 06:19 | NUR ---
PATIENT WOKE TO RN VERBAL CUES, A&O X4. PATIENT GIVEN WATER PER REQUEST, HE DENIES ANY OTHER NEEDS, CALL LIGHT IN REACH
--- NOTE | 2025-01-27 06:44 | NUR ---
DR. DAVIDSON AT BEDSIDE TO ASSESS PATIENT. PATIENT WOKE TO RN SPEAKING TO PATIENT. PATIENT , CHARLEEN, CALLED FOR UPDATE ON PATIENT.
[2025-01-27] MEDS ORDERED: SODIUM CHLORIDE 0.9% 1,000 ML IV SCH (07:00)
--- NOTE | 2025-01-27 07:11 | NUR ---
RECIEVED REPORT FROM LUAN BROWN. PT IS RESTING IN BED, NASAL CANNULA SECURELY ON FACE. RR EVEN AND UNLABORED WITH EYES CLOSED. CPOX AT BEDSIDE. CALL LIGHT AND PERSONAL BELONGINGS ARE WITHIN REACH.
[2025-01-27] MEDS ORDERED: AMP/SULBACTAM SOD 3 GM in SODIUM CHLORIDE 0.9% 100 ML IV SCH (08:00)
--- NOTE | 2025-01-27 08:32 | NUR ---
PATIENT IN BED AT THIS TIME. LATIN TEACHER CHARTED HOURLY ROUNDS. CALL LIGHT WITHIN REACH, NO FURTHER NEEDS.
[2025-01-27] MEDS ORDERED: hydroCHLOROthiazide 25 MG TAB PO SCH (09:00)
[2025-01-27] MEDS ORDERED: FUROSEMIDE 40 MG/4 ML VIAL IV SCH (09:00)
[2025-01-27] MEDS ORDERED: PANTOPRAZOLE SODIUM 40 MG TABEC PO SCH (09:00)
[2025-01-27] MEDS ORDERED: LOSARTAN POTASSIUM 100 MG TAB PO SCH (09:00)
--- NOTE | 2025-01-27 09:26 | NUR ---
DOXYCLINE DOSE STARTED AT THIS TIME. PT IS ON 2LNC AT THIS TIME. CPOX AT BEDSIDE. PT IS SITTING UP IN BED, VISITING WITH IN ROOM. PT REPORTS HE IS ABOUT TO SELF STRAIGHT CATH. THIS IS BASELINE FOR PT. PT AND FAMILY STATED NO FURTHER NEEDS. CALL LIGHT AND PERSONAL BELONGINGS WITHIN REACH.
--- NOTE | 2025-01-27 09:27 | NUR ---
INTO SEE PATIENT. PERSONAL HEALTH INFORMATION REVIEWED. PATIENT LIVES IN A HOUSE WITH . NO STEPS INTO THEIR HOME. PATIENT USES A WALKER, CANE AT BASELINE. NO OXYGEN BUT DOES WEAR A CPAP THROUGH [facility]. PATIENT STILL DRIVES. DENIES ANY DIFFCULTY PAYING UTILITIES OR OBTAINING FOOD AT THIS TIME. TO TAKE HIM HOME WHEN MEDICALLY CLEARED FOR DISCHARGE. NO CM NEEDS AT THIS TIME.
--- NOTE | 2025-01-27 09:55 | NUR ---
PATIENT IN BED AT THIS TIME. COUNCILMAN CHARTED VITALS AND I&O'S. CALL LIGHT WITHIN REACH, NO FRUTHER NEEDS.
--- NOTE | 2025-01-27 09:58 | NUR ---
PATIENT DOES NOT WANT TO USE HIS CPAP FROM HOME HE IS WAITING ON NEW MACHINE. DECLINED OFFER TO USE ONE OF OURS AND WANTS TO USE O2 PRN.
--- NOTE | 2025-01-27 10:25 | NUR ---
PATIENT IS LYING IN BED WITH HOB ELEVATED. NC IN PLACE. LIZANDRO, THE PHARMACIST IS IN THE ROOM AT THIS TIME. CALL LIGHT AND PERSONAL BELONGINGS ARE WITHIN REACH.
[2025-01-27] MEDS ORDERED: VITAMIN B-121000 MCG PO (10:44)
[2025-01-27] MEDS ORDERED: GABAPENTIN100 MG PO (10:44)
[2025-01-27] MEDS ORDERED: TYLENOL EXTRA500 MG PO (10:44)
--- NOTE | 2025-01-27 10:45 | NUR ---
MED REC COMPLETE
[2025-01-27] MEDS ORDERED: LUBRICANT EYE DROPS OU PRN (11:00)
--- NOTE | 2025-01-27 11:11 | NUR ---
PT WORKING WITH PHYSICAL THERAPY AT THIS TIME.
[2025-01-27] MEDS ORDERED: prednisoLONE ACETATE 1% 10 ML BTL OS SCH (11:30)
--- NOTE | 2025-01-27 11:40 | NUR ---
PT SITTING IN CHAIR, WORKING WITH PHYSICAL THERAPY. FULL ASSESSMENT COMPLETED AND DOCUMENTED IN CHART. PT IS A 1PA WITH FWW. PT WITH NO C/O PAIN OR SOB. HEART TONES IRREGULAR ON AUSCULATION. PT WITH A HX OF AFIB. PT IS ON TELE #2 IN AFIB. LUNGS SOUND CLEAR THROUGHOUT. PT IS ON 2LNC, WHICH IS NOT CHRONIC. IV WITH NS INFUSING AT 125 ML/HR. PT IS ALERT AND ORIENTED TIMES 4. SKIN WITH SCATTERED SCABS AND BRUISES NOTED. PT STATED NO FURTHER NEEDS. PHYSICAL THERAPY REMAINS IN ROOM.
[2025-01-27] MEDS ORDERED: PHARMACY RENAL DOSE ADJUSTMENT 1 DOSE MISC PO SCH (12:00)
--- NOTE | 2025-01-27 12:47 | NUR ---
PT SITTING IN CHAIR WITH LUNCH TRAY. IN ROOM TO ADMINISTER MEDS, PER THE EMAR. PT REQUESTED TYLENOL AND THEN REPORTED HIS PAIN WAS 0. PT CLARIFIED THAT HE TAKES TYLENOL AROUND THE CLOCK AT HOME FOR CHRONIC PAIN PROPHALACTICALLY. PT STATED NO FURTHER NEEDS AT THIS TIME. CALL LIGHT AND PERSONAL BELONGINGS WICONNIEN REACH.
--- NOTE | 2025-01-27 13:18 | NUR ---
DR DAVIDSON NOTIFIED OF PT'S HR DROPPING TO 30S BRIEFLY AND HAVING PAUSES. PT HAS REMAINED ASYMPTOMATIC DURING EPISODES. DENIES CHEST PAIN, SOB, DIZZINESS OR LIGHTHEADEDNESS TODAY. NO NEW ORDERS RECEIVED.
--- NOTE | 2025-01-27 13:34 | NUR ---
PT IS SITTING IN CHAIR WITH LOWER EXTREMITIES ELEVATED. VISITOR IN ROOM. CALL LIGHT AND PERSONAL BELONGINGS WITHIN REACH.
--- NOTE | 2025-01-27 14:00 | NUR ---
NOTIFIED OF PATIENT MOST RECENT BLOOD PRESSURE. GAVE TELEPHONE ORDER TO HOLD THE 1300 LASIX AT THIS TIME. PATIENT WITH NO NEW ORDERS AT THIS TIME. CALL ENDED.
--- NOTE | 2025-01-27 14:07 | NUR ---
FRESH ICE WATER AND KLEENEX PROVIDED TO THE PATIENT AT THIS TIME. PRN EYE DROPS ADMINISTERED BY THE PATIENT. PATIENT IS SITTING IN THE CHAIR WITH BILATERAL LOWER EXTREMITIES ELEVATED. 2L NC REMAINS IN PLACE WITH THE CPOX AT BEDSIDE. PATIENT STATED NO FURTHER NEEDS AT THIS TIME. CALL LIGHT AND PERSONAL BELONGINGS ARE WITHIN REACH.
--- NOTE | 2025-01-27 14:38 | NUR ---
UR CLINICAL REVIEW: 2 MN CALI, MEETS INPT FOR CHF EXACERBATION AND UTI SELF-CATHS AT BASELINE, POSITIVE FOR UTI, IV ANTIBIOTICS, IV LASIX MEDICARE INPT 01/27/2025 @ 0212 ORDER MATCHES REG NO AUTH REQUIRED PER MEDICARE RULES DC TO HOME WHEN MEDICALLY READY.
--- NOTE | 2025-01-27 15:08 | NUR ---
NOTIFIED OF PATIENT HR DROPPING INTO THE 30'S. MD GAVE TELEPHONE ORDER FOR EKG. THIS RN PUT IN THE ORDER AT THIS TIME. MD STATED NO FURTHER ORDERS AT THIS TIME. CALL ENDED.
--- NOTE | 2025-01-27 15:15 | NUR ---
NOTIFIED OF PATIENT RECEIVING TWO DOSES OF 40 ML IV LASIX AND THE POTASSIUM LEVEL OF 3.4. MD STATED HE WOULD PUT IN ORDERS AT THIS TIME.
--- NOTE | 2025-01-27 15:21 | NUR ---
PT SITTING UP IN CHAIR, PREPARING TO SELF-CATH. PT NOTIFIED THIS RN, "I NEED TO BE ABLE TO USE MY EYE DROPS TO MOISTEN MY EYES SIX TIMES A DAY INSTEAD OF FOUR." PRIMARY RN NOTIFIED. PROVIDED PT WITH WARM WASHCLOTH. KAILYN FOSTER, BRINGING PT NEW URINAL PER PT REQUEST FOR STRAIGHT CATH. PT STATED NO FURTHER NEEDS AT THIS TIME. CALL LIGHT AND PERSONAL BELONGINGS WITHIN REACH.
[2025-01-27 15:40] LABS: GLOMERULAR FILTRATION RATE,EST 85.0 mL/min (>60); UREA NITROGEN 21.0 mg/dL (7-18)
[2025-01-27] MEDS ORDERED: WARFARIN SOD 5 MG TAB PO SCH ×2 (16:00)
[2025-01-27] MEDS ORDERED: WARFARIN PER PHARMACY PROTOCOL PO SCH (16:00)
--- NOTE | 2025-01-27 16:14 | NUR ---
PATIENT IN CHAIR AT THIS TIME. PATIENT DECLINED BED BATH AT THIS TIME. CALL LIGHT WITHIN REACH, NO FURTHER NEEDS AT THIS TIME.
[2025-01-27] MEDS ORDERED: MAGNESIUM SULFATE 2 GM/50 ML BAG IV ONE (16:15)
[2025-01-27] MEDS ORDERED: POTASSIUM CHLORIDE 40 MEQ,LIDOCAINE HCL 1% 40 MG in DEXTROSE 5% 250 ML IV ONE (16:15)
--- NOTE | 2025-01-27 16:29 | NUR ---
NOTIFIED ABOUT THE PATIENT REQUESTING PRN EYE DROPS MORE FREQUENTLY. MD STATED HE WOULD SPEAK WITH THE PATIENT. NO FURTHER ORDERS AT THIS TIME.
--- NOTE | 2025-01-27 16:52 | NUR ---
DISCHARGE REVIEW: CONTINUE TO TREND LABS, MONITOR MENTATION, MANAGE ORAL MEDICATIONS FOR HEPATIC ENCEPHALOPATHY PLAN TO DC TO HOME WITH DAUGHTER WHEN READY ADD: 01/28/2025
[2025-01-27] MEDS ORDERED: ATORVASTATIN 20 MG TAB PO SCH (17:00)
[2025-01-27] MEDS ORDERED: ARTIFICIAL TEARS 15 ML BTL OU PRN (17:00)
--- NOTE | 2025-01-27 17:03 | NUR ---
PT SITTING UP IN CHAIR TALKING ON PHONE. CALL LIGHT AND PERSONAL BELONGINGS WITHIN REACH.
--- NOTE | 2025-01-27 18:08 | NUR ---
PATIENT IS SITTING IN THE CHAIR WITH BILATERAL LOWER EXTREMITIES. PATIENT IS ON HIS PHONE. PATIENT WITH NC IN PLACE WITH THE CPOX AT BEDSIDE. CALL LIGHT AND PERSONAL BELONGINGS ARE WITHIN REACH.
--- NOTE | 2025-01-27 19:30 | NUR ---
REPORT RECEIVED FROM LUAN RUTH, PATIENT IN BED WITH HOB RAISED, EYES OPEN, CHEST RISE EVEN AND UNLABORED. PATIENT DENIES CONCERNS AT THIS TIME.
[2025-01-27] MEDS ORDERED: MELATONIN 3 MG TAB PO PRN (21:00)
--- NOTE | 2025-01-27 21:20 | NUR ---
PATIENT IN BED WITH HOB RAISED, EYES OPEN, CHEST RISE EVEN AND UNLABORED. SCHEDULED MEDICATIONS ADMINISTERED. ASSESMENT AND VITAL SIGNS COMPLETE, IV FLUID INFUSING WITHOUT DIFFICULTY. CALL LIGHT AND PERSONAL BELONGINGS IN REACH OF PATIENT. PATIENT DENIES CONCERNS AT THIS TIME.
--- NOTE | 2025-01-27 22:29 | NUR ---
PT NEEDED ASSIST WITH STRAIGHT CATH. CROWN POUNCER ASSISTED PT WITH HOLDING URINAL AND GETTING SUPPLIES. PT ABLE TO SELF STRAIGHT CATH. OUTPUT MEASURED. PT BOOSTED IN BED. PT STATES NO FURTHER NEEDS AT THIS TIME. CALL LIGHT WITHIN REACH.
--- NOTE | 2025-01-27 23:39 | NUR ---
PATIENT IN BED WITH HOB RAISED, EYES CLOSED, CHEST RISE EVEN AND UNLABORED. CALL LIGHT AND PERSONAL BELONGINGS IN REACH OF PATIENT. IV FLUID INFUSING WITHOUT DIFFICULTY. NO APPARENT NEEDS NOTED AT THIS TIME.
[2025-01-28] VITALS (13 sets, daily range): BP systolic 108–131; BP diastolic 55–75
--- NOTE | 2025-01-28 00:31 | EKG ---
[facility] [address] [facility] [place] [address] Signed Atrial fibrillation with slow ventricular response Right bundle branch block T wave abnormality, consider inferolateral ischemia Abnormal ECG When compared with ECG of 29-DEC-2023 05:46, Vent. rate has decreased BY 30 BPM T wave inversion now evident in Inferior leads T wave inversion more evident in Lateral leads Confirmed by Robbie Damon MD () on 01/28/2025 12:30:56 AM Electronically Signed By: ROBBIE DAMON MD 01/28/2530 PATIENT NAME: BARNEY CÁRDENAS Electrocardiogram DATE OF : 42 PHYSICIAN: ROBBIE DAMON MD REPORT #: [id number] REPORT IS CONFIDENTIAL AND NOT TO BE RELEASED WITHOUT AUTHORIZATION
--- NOTE | 2025-01-28 01:24 | NUR ---
PATIENT IN BED WITH HOB RAISED, EYES CLOSED, CHEST RISE EVEN AND UNLABORED. IV FLUID INFUSING WITHOUT DIFFICULTY. CALL LIGHT AND PERSONAL BELONGINGS IN REACH OF PATIENT. NO APPARENT NEEDS NOTED AT THIS TIME.
--- NOTE | 2025-01-28 02:08 | NUR ---
PATIENT IN BED WITH HOB RAISED, EYES CLOSED, CHEST RISE EVEN AND UNLABORED. VITAL SIGNS AND I AND O COMPLETED. IV FLUID INFUSING WITHOUT DIFFICULTY. CALL LIGHT AND PERSONAL BELONGINGS IN REACH OF PATIENT. PATIENT DENIES CONCERNS AT THIS TIME.
--- NOTE | 2025-01-28 02:48 | NUR ---
PATIENT COMPLETED SELF CATHETER, 225ML OUT. SETTLED BACK IN BED, CPOX AT BEDSIDE, NC IN PLACE 2L. HE DENIES ANY OTHER NEEDS, CALL LIGHT IN REACH
[2025-01-28 05:52] LABS: BASOPHILS 0.4 % (0.2-1.2); EOSINOPHILS 7.0 % (0.8-7.0); LYMPHOCYTES 12.7 % (21.8-53.1); MCH 22.6 PG (25.7-32.2); MCHC 32.5 g/dL (32.3-36.5); MCV 69.5 fL (79.0-92.2); MONOCYTES 10.7 % (5.3-12.2); NEUTROPHILS 68.8 % (34.0-67.9); RBC 4.69 M/uL (4.63-6.08)
[2025-01-28 06:04] LABS: INR 2.72 (0.80-1.30); PROTIME 27.3 Sec (11.2-14.2)
[2025-01-28 06:07] LABS: SMEAR REVIEW BLOOD SEE COMMENTS
--- NOTE | 2025-01-28 06:17 | NUR ---
PATIENT IN BED, EYES OPEN, CHEST RISE EVEN AND UNLABORED. I AND O, VITAL SIGNS, MEWS, ASSESMENT, AND WEIGHT COMPLETED. PATIENT DENIES CONCERNS AT THIS TIME. PATIENT TRANSFERRED TO SITTING IN CHAIR. IV FLUID INFUSING WITHOUT DIFFICULTY. CALL LIGHT AND PERSONAL BELONGINGS IN REACH OF PATIENT.
[2025-01-28 06:18] LABS: GLOMERULAR FILTRATION RATE,EST 88.0 mL/min (>60); UREA NITROGEN 21.0 mg/dL (7-18)
--- NOTE | 2025-01-28 06:37 | NUR ---
CRITICAL LAB RECEIVED. I CALLED AND REVIEWED LAB RESULT AND THAT PATIENT CURRENTLY DENIES CHEST PAIN AT THIS TIME. I REVIEWED PATIENT'S TELEMETRY HAD A 4 SECOND PAUSE EARLY LAST NIGHT AND HIS HEART RATE HAD SHORT PERIODS OF LOW 30'S. MD VERBALIZED UNDERSTANDING, NO ORDERS AT THIS TIME.
[2025-01-28] MEDS ORDERED: POTASSIUM CHLORIDE 10 MEQ TABCR PO ONE (08:00)
[2025-01-28] MEDS ORDERED: FLU (Fluad) 2025-26 (65UP)/MF59C/PF 45 MCG/0.5 ML IM SCH (09:00)
--- NOTE | 2025-01-28 09:46 | NUR ---
PT WAS ASSISTED INTO THE BATHROOM SO HE COULD SELF-CATH. MS ACCESS DATABASE DEVELOPER HELPED WITH PREP AND CLEAN UP, AND DOCUMENTATION. PT BACK IN CHAIR, WITH ICE WATER AND CALL LIGHT NEXT TO HIM. MS ACCESS DATABASE DEVELOPER PICKED UP ROOM AND TOOK BREAKFAST TRAY OUT OF ROOM.
--- NOTE | 2025-01-28 10:05 | NUR ---
PT SITTING UP IN CHAIR. TEMPERATURE READING WAS LOW AND NOT READING CORRECTLY. RETAIL BUYER KRISTIN GOT TEMPORAL AND TEMP READ 97.4.
--- NOTE | 2025-01-28 10:19 | NUR ---
Patient awake sitting up in chair, alert to self and place, notable forgetfulness to situations. Patient continues to ask about his home medications, education provided. Patient's updated via phone regarding plan of care. Patient has no acute distress, call light within reach.
[2025-01-28] MEDS ORDERED: [UNRECOGNIZED DRUG - OTHER] OU (10:22)
--- NOTE | 2025-01-28 10:22 | NUR ---
INTO SEE PATIENT. SPOKE WITH HIM ABOUT SNF VS. HOME HEALTH. PATIENT WOULD LIKE TO JUST HAVE HOME HEALTH AND GO HOME WITH HIS . PATIENT CHOOSE [facility]. WILL FAX ORDERS AT TIME OF DISCHARGE.
[2025-01-28] MEDS ORDERED: HYALURONIC ACID OU PRN (10:30)
[2025-01-28] MEDS ORDERED: [UNRECOGNIZED DRUG - OTHER] OU PRN (10:30)
[2025-01-28] MEDS ORDERED: FUROSEMIDE 40 MG TAB PO ONE (10:45)
--- NOTE | 2025-01-28 12:57 | NUR ---
PATIENT IS IN BED AT THIS TIME, CATEGORY CONSULTANT CHARED VITALS AND I&O'S, CHANGED PATIENTS LINENS AND GOWN, CALL LIGHT WITH IN REACH AND NOTHING ELSE NEEDED AT THIS TIME.
--- NOTE | 2025-01-28 13:15 | NUR ---
PT ASSISTED OOB WITH FWW TO BRP. PT WITH 1 LARGE BROWN STOOL. PT SELF CATH'D WITH RETURN OF 400ML DARK YELLOW URINE. PT RETURNED TO BED, SIDE RAILS UP X2, CALL DAVIDSON IN REACH, BED IN LOW POSITION AND LOCKED. CPOX ON PT INSTRUCTED TO CALL FOR FURTHER ASSISTANCE. VERBALIZED UNDERSTANDING
[2025-01-28] MEDS ORDERED: WARFARIN SOD 7.5 MG TAB PO SCH (16:00)
--- NOTE | 2025-01-28 16:28 | NUR ---
Patient sitting up in chair, alert and oriented x3, no acute distress. Patient denies shortness of breath, sp02 90% on room air, respirations non labored. Patient denies needs, vital signs stable.
--- NOTE | 2025-01-28 18:16 | NUR ---
PATIENT IS IN BED AT THIS TIME, MILK TREATER ASSISTED TO THE RESTROOM, AND BACK TO BED, CHARTED VITALS AND I&O'S, IN ROOM, CALL LIGHT WTIH IN REACH AND NOTHING ELSE NEEDED AT THIS TIME.
--- NOTE | 2025-01-28 18:30 | NUR ---
Patient in bed awake on phone, oxygen sat level 88% on room air. Patient placed back on 2L oxygen per nc, respirations non labored. Patient denies shortness of breath and or chest pain. Patient denies needs. Personal supplies and call light within reach.
--- NOTE | 2025-01-28 19:20 | NUR ---
RECEIVED REPORT FROM DAY RN. PATIENT RESTING IN BED AT THIS TIME, CURRENTLY TALKING ON THE PHONE WITH FAMILY. PT CONCERNED ABOUT HOME EYE DROPS, WHICH I DID VERIFY AND THEY ARE ORDERED FOR THIS EVENING. PT STATES HE FEELS HIS URINE HAS SLOWED DOWN AFTER TAKING THE LASIX THIS MORNING BUT WILL NEED ASSISTANCE TO THE BATHROOM IF HE NEEDS TO GO. IV SALINE LOCKED. PT DENIES ANY CURRENT NEEDS, CALL LIGHT WITHIN REACH, INFORMED PT I WOULD BE BACK SHORTLY TO ASSESS AND PROVIDE EVENING MEDS.
--- NOTE | 2025-01-28 20:17 | NUR ---
CALL LIGHT ANSWERED. PT NEEDED TO USE BATHROOM. ENGINE ROOM OPERATOR 1PA WITH FWW TO BATHROOM. PT ABLE TO SELF CATH. PT THEN ASSISTED BACK TO BED. VITALS AND I&O OBTAINED. PT STATES NO FURTHER NEEDS AT THIS TIME. CALL LIGHT WITHIN REACH.
--- NOTE | 2025-01-28 20:30 | NUR ---
PT ASSESSMENT COMPLETED, IV ABX HUNG, PT GIVEN MELATONIN FOR SLEEP TONIGHT. PT DENIES ANY PAIN, STATES HE IS BREATHING BETTER, LS CLEAR THROUGHOUT, STATES FEELS HE IS BREATHING BETTER BUT DIDNT THINK HE WAS HAVING HARD TIME BREATHING EARLIER. ALL PT CARE NEEDS MET AT THIS TIME, CALL LIGHT WITHIN REACH. PT DENIES ANY OTHER NEEDS.
[2025-01-28] MEDS ORDERED: ATORVASTATIN 10 MG TAB PO SCH (21:00)
--- NOTE | 2025-01-28 23:05 | NUR ---
THIS RN WITH DRY KILN LOADER ASSISTANCE, HELPED PATIENT OUT OF BED, STANDS AT BEDSIDE TO URINATE IN URINAL. IV FLUIDS CONTINUE TO INFUSE, DENIES ANY NEEDS AT THIS TIME. BACK IN BED, DAUGHTER LEFT ROOM FOR ELIMINATION NEEDS AND RETURNS WHEN COMPLETE. CALL LIGHT WITHIN REACH.
--- NOTE | 2025-01-28 23:46 | NUR ---
PT REQUESTING TO GET UP TO BATHROOM FOR ELIMINATION NEEDS. PT REQUESTED PRIVACY TO STRAIGHT CATH, WAS STEADY AMBULATING TO THE BATHROOM W/ FWW. PT NOW BACK IN BED, CPOX IN PLACE. CALL LIGHT WITHIN REACH. ALL PT CARE NEEDS MET.
[2025-01-29] VITALS (10 sets, daily range): BP systolic 110–130; BP diastolic 54–82
--- NOTE | 2025-01-29 01:23 | NUR ---
REPORT RECEIVED FROM ARMANDO ROLAND. PT RESTING IN BED, EYES CLOSED. RR EVEN, UNLABORED. CALL LIGHT IN REACH, FAMILY IN ROOM.
--- NOTE | 2025-01-29 02:09 | NUR ---
RESTAURANT RECRUITER OBTAINED VITALS AND I&O. PT STATES NO NEEDS AT THIS TIME. CALL LIGHT WITHIN REACH.
--- NOTE | 2025-01-29 02:58 | NUR ---
PT CALLS TO USE BR, PROVIDED. ROOM CLEANED UP. PT BACK TO BED. CPOX 96% ON 2L NC FOR SLEEP, NOT CHRONIC. PT TOLERATED WELL. PT STATES NO OTHER NEEDS AT THIS TIME. CALL LIGHT IN REACH.
[2025-01-29 05:31] LABS: BASOPHILS 0.4 % (0.2-1.2); EOSINOPHILS 7.2 % (0.8-7.0); LYMPHOCYTES 13.2 % (21.8-53.1); MCH 22.7 PG (25.7-32.2); MCHC 32.7 g/dL (32.3-36.5); MCV 69.5 fL (79.0-92.2); MONOCYTES 8.4 % (5.3-12.2); NEUTROPHILS 70.3 % (34.0-67.9); RBC 4.66 M/uL (4.63-6.08)
--- NOTE | 2025-01-29 05:37 | NUR ---
VS AND I&O COMPLETED. TELE IS IRREGULAR AT 53. CPOX 95% ON 2L NC USED FOR SLEEP. LUNGS CLEAR. PT DENIES SOB. PT DENIES NEED TO USE BR AT THIS TIME. ICE WATER PROVIDED. PT STATES NO OTHER NEEDS AT THIS TIME. CALL LIGHT IN REACH.
[2025-01-29 05:42] LABS: INR 2.21 (0.80-1.30); PROTIME 23.8 Sec (11.2-14.2)
[2025-01-29 05:58] LABS: ALT (SGPT) 42.0 U/L (14-59); AST (SGOT) 33.0 U/L (15-37); GLOMERULAR FILTRATION RATE,EST 70.0 mL/min (>60); PROTEIN, TOTAL 6.0 g/dL (6.4-8.2); UREA NITROGEN 21.0 mg/dL (7-18)
--- NOTE | 2025-01-29 06:42 | NUR ---
PT RESTING IN BED, EYES CLOSED. RR EVEN, UNLABORED. CALL LIGHT IN REACH.
--- NOTE | 2025-01-29 07:53 | NUR ---
MORNING REPORT RECIEVED FROM LUAN MARTIN. PT SITTING UP IN BED, PT AWAKE AND ALERT AT THIS TIME AND HAS NO CURRENT CONCERNS AT THIS TIME, PT DID ASK TO USE THE RESTROOM WHERE THE PT SELF CATH WITH ASSISTANCE FROM THIS RN. PT WAS THE RETURNED TO CHAIR WITH CPOX IN PLACE AND PT HAS CALL LIGHT IN REACH.
[2025-01-29] MEDS ORDERED: FUROSEMIDE 40 MG TAB PO SCH (09:00)
--- NOTE | 2025-01-29 09:13 | NUR ---
PT SITTING UP IN CHAIR, JUST FINISHED BREAKFAST. CALL LIGHT WITHIN REACH, ROOM PICKED UP. GOT PT FRESH ICE WATER. PT REPORTS NEEDING NOTHING MORE AT THIS TIME.
--- NOTE | 2025-01-29 09:15 | NUR ---
LINEN CHANGE, PT IS IN CHAIR FOR BREAKFAST. CLEANED UP ROOM AND TOOK OUT TRASH.
--- NOTE | 2025-01-29 10:30 | NUR ---
PT DAILY WEIGHT TAKEN STANDING, WITH LICENSED OPTICIAN HOLDING TELE, PT TOLERATED WELL.
--- NOTE | 2025-01-29 10:35 | NUR ---
PT SITTING UP IN CHAIR IN ROOM, PT DENIES ANY CURRENT NEEDS AT THIS TIME, PT WAS VISITING FOR A SHORT PERIOD BUT LEFT AND WILL RETURN SOON, PT IS CURRENTLY ON TELE #2 PT HR IS IRREGULAR AND STEVEN @50 BPM. PT HAS CALL LIGHT IN [place] IF NEEDED.
--- NOTE | 2025-01-29 11:43 | NUR ---
CCU CALLED NURSES STATION TO NOTIFY THAT PT ON TELE #2 HAD A 3.5 SECOND PAUSE ON TELE, PT WAS ASYMPTOMATIC AND SITTING IN CHAIR. MD DAMON IS AWARE AND PLANS TO CONTINUE POC AT THIS TIME, PT HAS CALL LIGHT IN REACH.
--- NOTE | 2025-01-29 13:40 | NUR ---
PATIENT IN BED AT THIS TIME. ETCH OPERATOR SEMICONDUCTOR WAFERS CHARTED UITALS AND I&O'S. CALL LIGHT WITHIN REACH, NO FURTHER NEEDS.
--- NOTE | 2025-01-29 14:56 | NUR ---
PT RETURNED FROM RESTROOM WITH 1PA FWW INTO BED, PT IS AT PT BEDSIDE AND PT IS BEING SEEN BY MD DAMON, PT QUESTIONS WERE ANSWERED ABOUT POC AND PT HAS NO OTHER CONCERNS AT THIS TIME, PT HAS CPOX IN PLACE ON RA O2 SAT 93% PT HAS CALL LIGHT IN REACH IF NEEDED.
[2025-01-29] MEDS ORDERED: WARFARIN SOD 5 MG TAB PO SCH (16:00)
--- NOTE | 2025-01-29 16:15 | NUR ---
PT ASSITED TO THE RESTROOM TO VOID, PT STRAIGHT CATH AND TOLERATED WELL, PT RETURNED TO CHAIR AND HAS NO OTHER CONCERNS CALL LIGHT IN REACH.
--- NOTE | 2025-01-29 16:59 | NUR ---
PT USED CALL LIGHT TO ASK FOR ASSITANCE TO THE RESTROOM THIS RN ASSISTED PT STRAIGHT CATH AND VOIDED, PT RETURNED TO CHAIR WITH CPOX IN PLACE AND 1L NC IN PLACE. PT HAS CALL LIGHT IN REACH IF NEEDED.
--- NOTE | 2025-01-29 18:17 | NUR ---
PATIENT IN CHAIR AT THIS TIME. BOOMBOAT OPERATOR CHARTED VITALS AND I&O'S. CALL LIGHT WITHIN REACH, NO FURTHER NEEDS.
--- NOTE | 2025-01-29 21:32 | NUR ---
pt pleasant and cooperative with vitals and assessments, on 1LNC, CPOX at bedside, lungs dim at bases, no c/o SOB or CP, tele#2 afib w pauses. Abd large slightly firn, no bm today. self caths, voiding QS. Does own eye drops/ SL LFA patent, IV ABX infusing w/o problems. edema to LE, elevated.
--- NOTE | 2025-01-29 22:24 | EKG ---
[facility] [address] [facility] [place] [address] Signed Atrial fibrillation with slow ventricular response Right bundle branch block Abnormal ECG When compared with ECG of 27-JAN-2025 15:47, T wave inversion no longer evident in Inferior leads T wave inversion less evident in Anterolateral leads QT has shortened Confirmed by Robbie Damon MD () on 01/29/2025 10:24:41 PM Electronically Signed By: ROBBIE DAMON MD 01/29/25 2224 PATIENT NAME: BARNEY CÁRDENAS KIKO Electrocardiogram DATE OF : 42 PHYSICIAN: ROBBIE DAMON MD REPORT #: [id number] REPORT IS CONFIDENTIAL AND NOT TO BE RELEASED WITHOUT AUTHORIZATION
--- NOTE | 2025-01-29 22:40 | NUR ---
DR GARCIA NOTIFIED OF PT REQUESTING TYLENOL FOR BACK PAIN AND CLARIFICATION IF PT COULD HAVE THIS MED IT WAS DC'D EARLIER ON ADMIT. "IT PROBABLY WAS A ER BRIDGE ORDER THAT WENT AWAY, YES HE CAN HAVE IT." NEW ORDERS FOR TYLENOL OBTAINED
[2025-01-29] MEDS ORDERED: ACETAMINOPHEN 325 MG TAB PO PRN (22:45)
--- NOTE | 2025-01-29 22:56 | NUR ---
PT MEDICATED WITH 650MG PO TYLENOL FOR GENERAL ARTHRITIC PAIN 08/02. PRIMARY RN AWARE
[2025-01-30] VITALS (12 sets, daily range): BP systolic 113–135; BP diastolic 55–71
--- NOTE | 2025-01-30 00:06 | NUR ---
RESTING, AWAKENS EASILY, RELIEF FROM TYLENOL GIVEN EARLIER STATED, O2 IN PLACE, CPOX AT BEDSIDE, SELF CATHED EARLIER ON SHIFT. 1PA/FWW, TOLERATED WELL, TELE IN PLACE
--- NOTE | 2025-01-30 03:00 | NUR ---
aWAKENS EASILY, ON 1LNC, SATS 96%, NO S/SX RESP DISTRESS, TELE#[address], AFIB/STEVEN W PAUSES, DENIES CP OR SOB. COOPERATIVE
--- NOTE | 2025-01-30 04:00 | NUR ---
RESTING, EYES CLOSED, ON 1LNC. CPOX ON AT BEDSIDE, SATS 95%, TELE#[address] AFIB WITH PAUSES.
[2025-01-30 05:43] LABS: BASOPHILS 0.4 % (0.2-1.2); EOSINOPHILS 7.0 % (0.8-7.0); LYMPHOCYTES 18.5 % (21.8-53.1); MCH 22.5 PG (25.7-32.2); MCHC 32.6 g/dL (32.3-36.5); MCV 69.1 fL (79.0-92.2); MONOCYTES 9.7 % (5.3-12.2); NEUTROPHILS 64.0 % (34.0-67.9); RBC 4.79 M/uL (4.63-6.08)
[2025-01-30 05:57] LABS: INR 2.17 (0.80-1.30); PROTIME 23.5 Sec (11.2-14.2)
--- NOTE | 2025-01-30 05:59 | NUR ---
Pt awakens easily, then goes back to sleep, did not do standing weight at this time. tele#[address], afib with pauses. denies CP no SOB. no bm since 01/26 declined bowel care meds. O2 1LNC cpox on at bedside, sats WNL.
[2025-01-30 06:02] LABS: ALT (SGPT) 51.0 U/L (14-59); AST (SGOT) 36.0 U/L (15-37); GLOMERULAR FILTRATION RATE,EST 85.0 mL/min (>60); PROTEIN, TOTAL 6.3 g/dL (6.4-8.2); UREA NITROGEN 21.0 mg/dL (7-18)
--- NOTE | 2025-01-30 07:32 | NUR ---
MORNING REPORT RECIEVED FROM LUAN HOWARD. PT LAYING IN BED WITH EYES CLOSED CHEST RISE EQUAL BILAT WITH 1L NC IN PLACE, CPOX AND TELE #2 IRREGULAR HR/STEVEN. PT HAS CALL LIGHT IN REACH IF NEEDED.
[2025-01-30] MEDS ORDERED: POTASSIUM CHLORIDE 40 MEQ,LIDOCAINE HCL 1% 40 MG in DEXTROSE 5% 250 ML IV ONE (09:00)
--- NOTE | 2025-01-30 09:38 | NUR ---
PT SITTING IN CHAIR WITH NASAL CANNULA ON FACE. GOT PT FRESH ICE WATER AND TOOK OUT HIS TRTASH. PICKED UP THE ROOM. CALL LIGHT IS NEXT TO PT ON THE SIDE TABLE. PT REPORTS NEEDING NOTHING NORE AT THIS TIME.
--- NOTE | 2025-01-30 10:02 | NUR ---
PT SITTING UP IN CHAIR, PT SL SO PT CAN WORK WITH THE PT, PT HAS NO CONCERNS AT THIS TIME PHYSICAL THERPAY IN ROOM AT THIS TIME WITH RT PRESENT.
--- NOTE | 2025-01-30 10:09 | NUR ---
PATIENT WALKED WITH PT AND RT WITH LOWEST SpO2 OF 92%.
--- NOTE | 2025-01-30 12:17 | NUR ---
PT SITTING UP IN CHAIR PT DID VOID VIA SELF CATH AND PT TOLERATED WELL, PT HAS CALL LIGHT IN REACH IF NEEDED AND IS EATING LUNCH WITH NO CONCERNS.
--- NOTE | 2025-01-30 13:15 | NUR ---
PATIENT SALINE LOCKED, 1PA WITH FWW TO BATHROOM TO . PATIENT IS A&O, TO PULL CALL LIGHT WHEN FINISHED.
--- NOTE | 2025-01-30 13:34 | NUR ---
PATIENT BACK TO CHAIR WITH 1PA AND FWW.
--- NOTE | 2025-01-30 14:40 | NUR ---
PT SITTING UP IN CHAIR AT THIS TIME. PT DENIES ANY CURRENT NEEDS AND HAS CALL LIGHT IN REACH IF NEEDED.
--- NOTE | 2025-01-30 15:07 | NUR ---
PT SPOKE WITH MD DAMON AND SUSANNAH FROM RT AND PT IS AGREEABLE TO HAVE SPOUSE BRING HOME CPAP MACHINE TO HOSPITAL.
[2025-01-30] MEDS ORDERED: WARFARIN SOD 5 MG TAB PO SCH (16:00)
--- NOTE | 2025-01-30 17:17 | NUR ---
PT SITTING UP IN BED, PT AWAKE AND ALERT X2, PT HAS IV FLUIDS IN PLACE, PT DENIES ANY CURRENT NEEDS AND HAS CALL LIGHT IN REACH IF NEEDED.
--- NOTE | 2025-01-30 17:18 | NUR ---
PT ASSISTED TO RESTROOM TO SELF CATH, PT TOLERATED WELL, PT RETURNED TO CHAIR WITH CPOX IN PLACE AND PT HAS NO CURRENT CONCERNS. PT SET UP FOR DINNER AND HAS CALL LIGHT IN REACH.
--- NOTE | 2025-01-30 18:33 | NUR ---
PT LAYING IN BED, PT GIVEN ICE TEA AND PT WAS THANKFUL, PT HAS NO OTHER CONCERNS AT THIS TIME AND HAS CALL LIGHT IN REACH IF NEEDED.
--- NOTE | 2025-01-30 18:39 | NUR ---
PATIENT WAS ASSISTED SBA WITH FWW FROM THE CHAIR TO THE BATHROOM AND BACK TO BED. PATIENTS VITAL SIGNS AND I&OS WERE DONE. PATIENTS WATER WAS REFILLED AND WARM BLANKETS WERE PROVIDED. PATIENT IS LAYING IN BED WITH CALL LIGHT WITHIN REACH AND NO FURTHER NEEDS AT THIS TIME.
--- NOTE | 2025-01-30 20:09 | NUR ---
PATIENT ASSISTED TO THE BR A 1PA W/FWW. PATIENT COMPLETED STRAIGHT CATH IND. PATIENT IS BACK IN BED RESTING. PATIENTS VITALS TAKEN AND RECORDED. PATIENT DENIES ANY FURTHER NEEDS. CALL LIGHT IN REACH. CPOX IN USE.
--- NOTE | 2025-01-30 21:22 | NUR ---
Awake, on room air, CPOX on at bedside, sats 88-96% on room air. Lungs clear bilat at this time, Tele#[address] afib Denies CP or SOB, was up to BRp earlier and self cather voiding QS urine. stated no bm today, declines starting bowel care meds. Medicated with Tylenol 650 per back and arthritis pain, Medicated with Melatonin per insomnia. DOes own eye qtts home CPAP at bedside. stated "Iwill call you to help me set it up when Mane ready for bed.". legs elevated improved decreased edema. Tolerating fluids well
--- NOTE | 2025-01-30 23:41 | NUR ---
RESTING, NO S/SX DISTRESS, USING HOME CPAP, CPOX ON AT BEDSIDE, WNL.
[2025-01-31] VITALS (8 sets, daily range): BP systolic 119–135; BP diastolic 56–77
--- NOTE | 2025-01-31 01:26 | NUR ---
Using home CPAP, resting, eyes closed, CPOX on at bedside, sats WNL. no s/sx distress.
--- NOTE | 2025-01-31 04:12 | NUR ---
Used call light, up to BRP, 1PA/FWW, pt did his own straight cath. voidied large amunts of light tea colored urine. Back to bed, slightly unsteady gait present. daily standing weight was 105.5KG. Repositioned self in bed HOB elevated. using home CPAP, CPOX on at bedside. On return from [facility], aats were 80%, pt denies SOB , after applying CPAP sats 89-92%. tele#2 afib with multiform PVC's HR 67-53. Denies CP, legs elevated w pillows, fresh water and call light at hands reach, Denies any c/o pain
[2025-01-31 05:38] LABS: BASOPHILS 0.8 % (0.2-1.2); EOSINOPHILS 5.7 % (0.8-7.0); LYMPHOCYTES 18.8 % (21.8-53.1); MCH 22.6 PG (25.7-32.2); MCHC 32.7 g/dL (32.3-36.5); MCV 69.0 fL (79.0-92.2); MONOCYTES 8.5 % (5.3-12.2); NEUTROPHILS 65.7 % (34.0-67.9); RBC 4.96 M/uL (4.63-6.08)
[2025-01-31 06:05] LABS: ALT (SGPT) 51.0 U/L (14-59); AST (SGOT) 32.0 U/L (15-37); GLOMERULAR FILTRATION RATE,EST 77.0 mL/min (>60); PROTEIN, TOTAL 6.3 g/dL (6.4-8.2); UREA NITROGEN 21.0 mg/dL (7-18)
--- NOTE | 2025-01-31 07:32 | NUR ---
PT WERING CPAP RESTING EYES CLOSED AT TIME OF SHIFT REPORT, LEFT UNDISTURBED. CALL LIGHT IN REACH
[2025-01-31] MEDS ORDERED: POTASSIUM CHLORIDE 40 MEQ,LIDOCAINE HCL 1% 40 MG in DEXTROSE 5% 250 ML IV ONE (08:15)
[2025-01-31] MEDS ORDERED: MAGNESIUM SULFATE 2 GM/50 ML BAG IV ONE (08:15)
--- NOTE | 2025-01-31 09:45 | NUR ---
SPOKE WITH PATIENT REGARDING DC PLAN. CONTINUES TO PLAN TO RETURN HOME WITH HOME HEALTH ORDERS FOR PT/OT. CONCERNED ABOUT CARDIOLOGY FOLLOW-UP, INFORMED HIM DR. DAMON IS REACHING OUT TO CARDIOLOGY. PATIENT ASKS MANY QUESTIONS REGARDING THE FLU VACCINE. STATES HE DOES NOT WANT THE VACCINE AT THIS TIME. STATES HE MAY GET ONE WHEN HE IS FEELING BETTER.
--- NOTE | 2025-01-31 10:42 | NUR ---
PT UP TO THE BATHROOM DOING SELF CARE. IS PRESENT IN THE ROOM, ALL QUESTIONS ANSWERED
--- NOTE | 2025-01-31 12:45 | NUR ---
PT UP TO TOILET SELF CATHS THEN RETURNS TO BED REMAINS IN THE ROOM WAITING TO SEE DR DAMON.
--- NOTE | 2025-01-31 14:08 | NUR ---
AND PT AGREE DR GARCIA ANSWERED ALL QUESTIONS AND THEY ARE HAPPY WITH PLAN GOING FORWARD. POSSIBLE DC LATER TODAY
--- NOTE | 2025-01-31 14:10 | NUR ---
PT WORKING WITH P/T
--- NOTE | 2025-01-31 14:48 | NUR ---
PT SITTING UP IN THE CHAIR DENIES NEEDS OF. CALL LIGHT AND NEEDED ITEMS IN REACH
[2025-01-31] MEDS ORDERED: WARFARIN SOD 7.5 MG TAB PO SCH (16:00)
--- NOTE | 2025-01-31 16:26 | NUR ---
PT SITTING UP IN THE CHAIR USING ELECTRONICS DENIES NEEDS AT THIS TIME. CONTINUES ON 02 2L SATS 92%
--- NOTE | 2025-01-31 17:36 | NUR ---
PT CONTINUES UP IN THE CHAIR WITH EVENING MEAL DENIES NEEDS AT THIS TIME
[2025-01-31] MEDS ORDERED: DOXYCYCLINE HY100 MG PO (17:59)
[2025-01-31] MEDS ORDERED: LASIX20 MG PO (18:01)
[2025-01-31] MEDS ORDERED: DOXYCYCLINE HYCLATE 100 MG CAP PO ONE (18:15)
[2025-02-02 09:14] LABS: SMEAR REVIEW BLOOD SEE COMMENTS
== END 2025-01-31 18:28 | disposition home or self-care (01) | DRG 698 ==
LOC: ED 21:56 → MS 01-27 02:39
PROVIDERS: Family Medicine; ADMIT Internal Medicine; ATTEND Family Medicine
PROC: 3E03329 Introduction of Other Anti-infective into Peripheral Vein, Percutaneous Approach (ICD-10-PCS; principal; 2025-01-26)
PROC: 0T9B7ZZ Drainage of Bladder, Via Natural or Artificial Opening (ICD-10-PCS; 2025-01-27)
PROC: 5A09357 Assistance with Respiratory Ventilation, Less than 24 Consecutive Hours, Continuous Positive Airway Pressure (ICD-10-PCS; 2025-01-30)
DX: T83.598A Infection and inflammatory reaction due to other prosthetic device, implant and graft in urinary system, initial encounter (principal); I50.33 Acute on chronic diastolic (congestive) heart failure; J96.01 Acute respiratory failure with hypoxia; N39.0 Urinary tract infection, site not specified; N13.8 Other obstructive and reflux uropathy; Y84.6 Urinary catheterization as the cause of abnormal reaction of the patient, or of later complication, without mention of misadventure at the time of the procedure; I11.0 Hypertensive heart disease with heart failure; E78.00 Pure hypercholesterolemia, unspecified; I48.0 Paroxysmal atrial fibrillation; N40.1 Benign prostatic hyperplasia with lower urinary tract symptoms; E87.6 Hypokalemia; E83.42 Hypomagnesemia; J44.9 Chronic obstructive pulmonary disease, unspecified; R00.1 Bradycardia, unspecified; F03.90 Unspecified dementia, unspecified severity, without behavioral disturbance, psychotic disturbance, mood disturbance, and anxiety; R56.9 Unspecified convulsions; G47.30 Sleep apnea, unspecified; Z88.2 Allergy status to sulfonamides; Z88.1 Allergy status to other antibiotic agents; Z88.8 Allergy status to other drugs, medicaments and biological substances; Z79.01 Long term (current) use of anticoagulants; Z86.711 Personal history of pulmonary embolism
CPT/HCPCS: 36415; 71045; 80048; 80053; 81001; 83735; 83880; 84484; 85025; 85060; 85610; 87088; 93005; 93010; 93242; 93244; 94761; 94762; 94799; 96365; 96366; 96375; 97116; 97161; 97165; 97530; 97535; 99285-25; A9270; J0295; J1100; J1938; J3475; J3480; J3490; J7030; J7060

== ENCOUNTER 2025-03-28 14:11 | Emergency (ER) | payer MEDICARE, BC ==
[~2025-03-28] VITALS: Ht 175.3 cm; Wt 106.8 kg
--- OUTSIDE RECORDS SUMMARY | ~2025-03-28 | XMS | Continuity of Care Document ---
Demographics + + + | Address | [address] | | | [place] [address] | + + + | Preferred Language | Unknown | + + + | Marital Status | | + + + | [employer] Affiliation | Unknown | + + + | Race | White | + + + | Ethnic Group | Not or | + + + Author + + + | Author | [facility] | + + + | Organization | [facility] | + + + | Address | [address] | | | [place] [address] | + + + | Phone | | + + + Care Team Providers + + + + | Care Street And Building Decorator Name | Role | Phone | + + + + Unavailable | Unavailable | + + + + Unavailable | Unavailable | + + + + Allergies No information. Encounters No information. Functional Status No information. Immunizations No information. Medications + + + + | date | description | facility | + + + + | (no date) | PREDNISOLONE ACETATE | [facility] [place] | | | | [facility] | + + + + | (no date) | DOXAZOSIN MESYLATE | [facility] [place] | | | | [facility] | + + + + | (no date) | DOXAZOSIN MESYLATE | [facility] [place] [place] [facility] [place] | | | | [facility] | + + + + | (no date) | PHENOBARBITAL | [facility] [place] [place] [facility] [place] | | | | [facility] | + + + + | (no date) | Olopatadine HCl | [facility] [place] | | | | [facility] | + + + + | (no date) | Cyanocobalamin (Vitamin | [facility] [place] | | | B-12) | [facility] | + + + + | (no date) | FLUOROMETHOLONE | [facility] [place] | | | | [facility] | + + + + | (no date) | GABAPENTIN | [facility] [place] | | | | [facility] | + + + + | (no date) | GABAPENTIN | [facility] [place] | | | | [facility] | + + + + | (no date) | MARY LEÓN | [facility] | | | 0.05% | [facility] | + + + + | (no date) | ATORVASTATIN CALCIUM | [facility] [place] [place] [facility] [place] | | | | [facility] | + + + + | (no date) | Cholecalciferol (Vitamin | [facility] [place] | | | D3) | [facility] | + + + + | (no date) | NAPROXEN SODIUM | [facility] | | | | [facility] | + + + + | (no date) | WARFARIN SODIUM | [facility] | | | | [facility] | + + + + | (no date) | TAMSULOSIN HCL | [facility] [place] [place] [facility] [place] | | | | [facility] | + + + + | (no date) | | [facility] [place] | | | LOSARTAN/HYDROCHLOROTHIAZID | [facility] | | | E | | + + + + | (no date) | LOSARTAN POTASSIUM | [facility] [place] | | | | [facility] | + + + + Problems No information. Procedures No information. Results/Labs No information. Social History +--------+ + + | date | description | facility | +--------+ + + Vital Signs + + + +---------+ | date | measurement | value | units | + + + +---------+ | 2025-01-10 00:00 | weight_metric | 111.13 | kg | + + + +---------+ | 2025-01-10 00:00 | weight_standard | 245.000 | lb | + + + +---------+ | 2025-01-18 00:00 | BP_diastolic | 69 | mmHg | + + + +---------+ | 2025-01-18 00:00 | BP_systolic | 122 | mmHg | + + + +---------+ | 2025-01-18 00:00 | heart_rate | 61 | /min | + + + +---------+"
[~2025-03-28 14:11] MED LIST changes: +CIPRO500 MG PO; +LASIX20 MG PO; +LOSARTAN-HCTZ1 EAC2 PO; +NITROFURANTOIN100 M1 PO; +VITAMIN B-121000 MCG PO; +[UNRECOGNIZED DRUG - OTHER] OU
[2025-03-28 14:30] LABS: BASOPHILS 0.4 % (0.2-1.2); EOSINOPHILS 1.8 % (0.8-7.0); LYMPHOCYTES 14.0 % (21.8-53.1); MCH 22.5 PG (25.7-32.2); MCHC 31.7 g/dL (32.3-36.5); MCV 70.9 fL (79.0-92.2); MONOCYTES 7.3 % (5.3-12.2); NEUTROPHILS 76.1 % (34.0-67.9); RBC 5.29 M/uL (4.63-6.08)
[2025-03-28] MEDS ORDERED: ASPIRIN 81 MG CHEW PO ONE (14:30)
[2025-03-28 14:50] LABS: INR 2.87 (0.80-1.30); PROTIME 28.5 Sec (11.2-14.2)
[2025-03-28 14:53] LABS: ALT (SGPT) 48.0 U/L (14-59); AST (SGOT) 34.0 U/L (15-37); GLOMERULAR FILTRATION RATE,EST 76.0 mL/min (>60); PROTEIN, TOTAL 7.4 g/dL (6.4-8.2); UREA NITROGEN 22.0 mg/dL (7-18)
[2025-03-28] MEDS ORDERED: HYDROCODON-ACE1 EA10 PO (17:27)
[2025-03-28] MEDS ORDERED: HYDROCODONE/ACETA 5/325 TAB PO ONE (17:30)
[2025-03-28 17:40] VITALS: BP 137/78
--- NOTE | 2025-03-29 22:28 | EKG ---
[facility] [address] [place] [address] Signed Atrial fibrillation Right bundle branch block Minimal voltage criteria for LVH, may be normal variant ( R in aVL ) Septal infarct , age undetermined Lateral infarct , age undetermined Abnormal ECG When compared with ECG of 28-JAN-2025 12:09, Septal infarct is now present Lateral infarct is now present QT has lengthened Confirmed by Robbie Damon MD () on 03/29/2025 10:28:29 PM Electronically Signed By: ROBBIE DAMON MD 03/29/25 2228 PATIENT NAME: BARNEY CÁRDENAS Electrocardiogram DATE OF : 42 PHYSICIAN: ROBBIE DAMON MD REPORT #: [id number] REPORT IS CONFIDENTIAL AND NOT TO BE RELEASED WITHOUT AUTHORIZATION
== END 2025-03-28 17:40 | disposition home or self-care (01) ==
LOC: ED 14:11
PROVIDERS: Emergency Medicine
DX: R07.89 Other chest pain (principal); I10 Essential (primary) hypertension; E78.5 Hyperlipidemia, unspecified; Z88.2 Allergy status to sulfonamides; Z88.8 Allergy status to other drugs, medicaments and biological substances; Z79.899 Other long term (current) drug therapy; Z59.89 Other problems related to housing and economic circumstances
CPT/HCPCS: 36415; 71045; 71275; 80053; 83735; 84484; 85025; 85610; 93005; 93010; 99284-25; A9270; Q9967

== ENCOUNTER 2025-04-09 05:37 | Inpatient (IN) | payer MEDICARE, BC | END 2025-04-11 11:00 | disposition home health service (06) | DRG 281 | LOC: ED 05:37 → MS 13:49 | PROVIDERS: ADMIT Internal Medicine | PROC: 3E03329 Introduction of Other Anti-infective into Peripheral Vein, Percutaneous Approach (ICD-10-PCS; principal; 2025-04-09) | PROC: 0T9B70Z Drainage of Bladder with Drainage Device, Via Natural or Artificial Opening (ICD-10-PCS; 2025-04-09) | PROC: 5A09357 Assistance with Respiratory Ventilation, Less than 24 Consecutive Hours, Continuous Positive Airway Pressure (ICD-10-PCS; 2025-04-09) | DX: I21.4 Non-ST elevation (NSTEMI) myocardial infarction (principal); N13.8 Other obstructive and reflux uropathy; N39.0 Urinary tract infection, site not specified; K59.00 Constipation, unspecified; I50.9 Heart failure, unspecified; N40.1 Benign prostatic hyperplasia with lower urinary tract symptoms; R33.8 Other retention of urine; I11.0 Hypertensive heart disease with heart failure; E78.00 Pure hypercholesterolemia, unspecified; I48.0 Paroxysmal atrial fibrillation; F03.90 Unspecified dementia, unspecified severity, without behavioral disturbance, psychotic disturbance, mood disturbance, and anxiety; J44.9 Chronic obstructive pulmonary disease, unspecified; R62.7 Adult failure to thrive; R56.9 Unspecified convulsions; Z91.81 History of falling; Z79.01 Long term (current) use of anticoagulants; Z88.2 Allergy status to sulfonamides; Z88.8 Allergy status to other drugs, medicaments and biological substances; Z88.1 Allergy status to other antibiotic agents ==